=== PATIENT | male | born 1990 | race Caucasian/White ===

== ENCOUNTER → 2017-04-17 07:40 | Outpatient (CLI) | payer BC, SELFPAY ==
--- NOTE | 2017-04-17 07:44 | ECHOD_ITS ---
Reason For Study: PALPITATIONS Procedure This was a 2D Doppler, Color Flow transthoracic echocardiogram. Exam performed in department. Left Ventricle Normal size and thickness. The estimated ejection fraction is 65 %. No regional wall motion abnormalities noted. Right Ventricle Normal size and thickness. Normal systolic function. Atria Normal left atrium. Normal right atrium. Normal atrial septum. Mitral Valve The mitral valve is structurally normal. No prolapse or stenosis seen. Tricuspid Valve Normal tricuspid valve. Trivial tricuspid valve insufficiency. Right ventricular systolic pressure estimated to be 27 mmHg. Aortic Valve Trisinus/trileaflet aortic valve. Normal aortic valve. Pulmonic Valve Normal pulmonic valve. Great Vessels Normal aortic root. Normal arch. Normal inferior vena cava. Inferior vena cava collapse with sniff. Pericardium/Pleural No pericardial effusion. MMode/2D Measurements & Calculations LVIDd: 4.0 cm IVSd: 0.94 cm Ao root diam: 2.9 cm LVIDs: 2.6 cm LVPWd: 0.89 cm LA dimension: 2.3 cm RVDd: 3.2 cm FS: 35.2 % LAV(MOD-bp): 23.0 ml EDV(MOD-sp4): 70.6 ml EDV(MOD-sp2): 81.4 ml LAV(MOD-bp) Indexed: 11.6 ml/m2 ESV(MOD-sp4): 32.3 ml EF(MOD-sp2): 42.0 % LAV(MOD-sp2): 18.3 ml EF(MOD-sp4): 54.3 % LAV(MOD-sp4): 25.0 ml SV(MOD-sp4): 38.3 ml SV(MOD-sp2): 34.2 ml LA A4 area: 11.8 cm2 RA A4 area: 9.2 cm2 Doppler Measurements & Calculations MV E max lakia: 92.0 cm/sec Ao V2 max: 102.1 cm/sec LV V1 max: 106.5 cm/sec MV A max lakia: 63.5 cm/sec Ao max P.2 mmHg LV V1 max P.5 mmHg MV E/A: 1.4 PA V2 max: 100.9 cm/sec TR max lakia: 211.7 cm/sec TR max P.9 mmHg Interpretation Summary The estimated ejection fraction is 65 %. Trivial tricuspid valve insufficiency. Right ventricular systolic pressure estimated to be 27 mmHg. There is no comparison study available. Ordering Physician: Monroe Jennings Referring Physician: Monroe Jennings Performed By: Emily Baig, ALYCECS, RVT
== END ==
PROVIDERS: Family Provider Family Medicine; PCP Family Medicine; Visit Provider Family Medicine
DX: I45.10 Unspecified right bundle-branch block (principal); R00.2 Palpitations; R94.31 Abnormal electrocardiogram [ECG] [EKG]
CPT/HCPCS: 93306

== ENCOUNTER 2019-01-16 07:03 | Emergency (ER) | payer MEDICAID, SELFPAY ==
[2019-01-16 07:05] VITALS: BP 143/104; PULSE 105; RESP 16; TEMP 36.4; O2SAT 99; BMI 27.2
--- NOTE | 2019-01-16 07:27 | ED.DCSUM_ITS ---
History of Present Illness Chief Complaint: GI Bleed Informant: Patient Onset: Today Context: Gradual Onset Timing: Intermittent Narrative: Patient is a 28-year-old male with history of OCD presenting with hematemesis. Patient states he ate food that disagreed with his stomach, [employer] and an energy drink. Patient started throwing up. He states he sort of a total of 10 times. His last episode of vomiting was about an hour ago. He states as he continued to throw up he started seeing globs of blood in his vomit. Patient currently is complaining of a mild headache but denies any other complaints. He states this is happened to him in the past before. He denies any black or bloody stools. He denies any chest pain, shortness breath difficult to breathing. Patient states he has had an EGD in the past. He states that was 2 years ago they did not find anything. At one point he was on omeprazole but is not taking anything for acid reflux or his stomach at this time. Patient denies any alcohol, tobacco or illicit drug use. He states he has been compliant with his psychiatric medications. Past Medical History - Allergies and Home Meds Allergies/Adverse Reactions: Allergies No Known Allergies Allergy (Verified 01/16/19 07:08) Primary Care Physician: Monroe Jennings DO [Primary Care Provider] - Surgical History: - - Colonoscopy, EGD Smoking Status: Never smoker Alcohol: None Drugs: None Review of Systems All systems negative except as indicated Gastrointestinal: Reports: Nausea, Vomiting, - - Hematemesis Neurological: Reports: Headache Physical Exam Vital Signs/Narrative: Vital Signs Temp Pulse Resp BP Pulse Ox 01/16/19 07:05 97.6 F L 105 H 16 143/104 H 99 Inital Vital Signs reviewed: Yes General: Well nourished, Well developed, No Acute Distress Head: Normocephalic, Atraumatic Eyes: Perrl, EOMI. Negative for: Pale conjunctiva ENT: Moist mucous membranes, No rhinorrhea Neck: Supple, Nontender Cardiovascular: Regular rate, Regular rhythm, No murmurs Respiratory: No distress, CTA bilaterally, Chest nontender Abdomen: Soft, Nontender, Nondistended, Normal bowel sounds Back: Nontender, Normal Inspection Extremities: Nontender, No edema Skin: Normal color, No rash Neurological: Alert, Oriented x3, Cranial nerves II-XII grossly intact, Normal Strength, Normal Sensation Psychological: Normal affect, Normal Mood Diagnostic/Tx/Re-eval Laboratory Data 01/16/19 01/16/19 07:49 07:49 WBC 11.3 H RBC 5.48 Hgb 15.5 Hct 46.6 MCV 85.0 MCH 28.3 MCHC 33.3 RDW Std Deviation 37.8 RDW Coeff of Mikayla 12.1 Plt Count 199 MPV 11.0 Immature Gran % (Auto) 0.400 Neut % (Auto) 79.5 H Lymph % (Auto) 13.8 L Lewis % (Auto) 5.4 Eos % (Auto) 0.5 Baso % (Auto) 0.4 Absolute Neuts (auto) 9.0 H Absolute Lymphs (auto) 1.56 Nucleated RBC % 0 Sodium 137 Potassium 3.6 Chloride 102 Carbon Dioxide 27.0 Anion Gap 8 BUN 9 Creatinine 0.87 Estim Creat Clear Calc 120.11 Est GFR (MDRD) Af Amer 132 Est GFR (MDRD) Non-Af 109 BUN/Creatinine Ratio 10.3 Glucose 107 H Calcium 9.2 Total Bilirubin 0.40 AST 23 ALT 51 Alkaline Phosphatase 78 Total Protein 7.8 Albumin 4.0 Globulin 3.8 Albumin/Globulin Ratio 1.1 Lipase 59 L - Medical Decision Making Patient is evaluated for episodes of vomiting prior to arrival as well as blood in his vomit. He appears nontoxic and in no acute distress. Patient is likely tachycardic but is also quite anxious. It sounds like patient likely had Lili-Gibbons tears as he initially did not have blood in his vomit but then it started to develop after repeated episodes of vomiting. He does not have any chest pain or crepitus. I do not suspect Boerhaave syndrome. He is hemodynamically stable. H&H is normal. Patient has normal electrolytes, lipase and liver function. Patient is in the ER he becomes more anxious and now states he cannot move any of his extremities. Patient is unable to sound system installer my hands or raise his legs however when his arms are raised he is able to keep them up. In addition patient states he cannot move his feet however when I placed him in dorsi and plantar flexion he resist and moves his legs the opposite way. He has very good tone. He does not have any cogwheel rigidity on range of motion. I suspect this is psychogenic. Patient is given 0.5 mg of IV Ativan and the symptoms resolved. Patient is able to ambulate in the emergency room. He does not have any episodes of vomiting or hematemesis. Patient will be started on H2 lilliam as well as Zofran. He is counseled on a bland diet. I feel that he is stable for outpatient follow-up. Patient is encouraged to continue taking his psychiatric medications as prescribed. Patient is counseled on signs and symptoms requiring return to the emergency room. Patient verbalizes agreement and understand this plan. Patient discharged home in stable and improved condition. ED Disposition - Plan for ED Patient: Disposition: Home or Assisted Living Diagnosis: Hematemesis of unknown cause Instructions: GI BLEED, Upper (Stable) Prescriptions: Famotidine [Pepcid] 20 mg PO BID #28 tab Prescription Printed Ondansetron [Zofran Odt] 4 mg PO Q8H PRN PRN #12 tab PRN Reason: Nausea Prescription Printed Referrals: Monroe Jennings DO [Primary Care Provider] - Additional Instructions: You have been seen for vomiting with blood in it at home. You do not have signs of active bleeding right now. I think you are safe to go home. Please start taking the medications as prescribed. Drink plenty of fluids and eat a bland diet. Return to emergency room if you have worsening or further concerning symptoms.
[2019-01-16 07:43] VITALS: BP 152/113; PULSE 87; RESP 16; O2SAT 100
[2019-01-16] MEDS: 0.9% Normal Saline 1,000 ML 1000 ML IV (07:47)
[2019-01-16 07:57] LABS: Absolute Lymphocyte Count 1.56 X10^3/uL (0.83-4.51); Basophil# 0.05 X10^3/uL; Basophil% 0.4 % (0-1); Eosinophil# 0.06 X10^3/uL; Eosinophils% 0.5 % (0-5); Hematocrit 46.6 % (40-54); Hemoglobin 15.5 g/dL (13.0-16.5); Lymphocyte # 1.56 X10^3/ul (4.0); Lymphocyte % 13.8 % (19-41); Mean Corp Hgb Conc 33.3 g/dL (32-36); Mean Corpuscular Hgb 28.3 pg (27.0-32.0); Monocyte# 0.61 X10^3/uL; Monocyte% 5.4 % (0-10); NRBC Flagged by Analyzer 0 % (0-5); Neutrophil # 8.95 X10^3/uL (2.7-7.7); Neutrophil % 79.5 % (47-70); Platelet Count 199 K/mm3 (150-450); RBC Distribution Width CV 12.1 % (11.6-14.6); RBC Distribution Width SD 37.8 fl (35.1-43.9); Red Blood Count 5.48 M/mm3 (4.6-6.2); White Blood Count 11.3 K/mm3 (4.4-11.0)
--- NOTE | 2019-01-16 08:07 | ED.RN ---
pt denies nausea at this time.
[2019-01-16 08:14] LABS: ALB/GLOB Ratio 1.1 RATIO (0.9-2.4); AST(SGOT) 23 U/L (15-37); Alanine Aminotransfer ALT/SGPT 51 U/L (16-61); Alkaline Phosphatase 78 U/L (45-117); Anion Gap 8 (5-15); BUN 9 mg/dL (7-18); BUN/Creat Ratio 10.3 RATIO (10-20); Calcium,Total 9.2 mg/dL (8.5-10.1); Chloride 102 mmol/L (98-107); Creatinine, Serum 0.87 mg/dL (0.70-1.30); EST Glomerular Filtration Rate 109 mL/min (>60); Est Glom Filt Rate - Afr Amer 132 mL/min (>60); Estimated Creatinine Clearance 120.11 ml/min; Globulin 3.8 g/dL (2.2-4.2); Glucose 107 mg/dL (74-106); Lipase 59 U/L (73-393); Potassium 3.6 mmol/L (3.5-5.1); Protein, Total 7.8 g/dL (6.4-8.2); Sodium Level 137 mmol/L (136-145)
[2019-01-16] MEDS: LORazepam 2 MG/ML Syringe 0.5 MG IV (08:32)
[2019-01-16 09:08] VITALS: BP 140/103; PULSE 72; RESP 16; O2SAT 96
== END 2019-01-16 09:20 | disposition home or self-care (01) ==
PROVIDERS: Emergency Provider Emergency Medicine; Family Provider Family Medicine; PCP Family Medicine
DX: K92.0 Hematemesis (principal)
CPT/HCPCS: 80053; 83690; 85025; 96361; 96374; 99284; J7030; A4216

== ENCOUNTER → 2019-02-25 14:42 | Outpatient (CLI) | payer MEDICAID, SELFPAY ==
[2019-02-25 16:10] LABS: T4 Free Direct 1.02 ng/dL (0.76-1.46); Thyroid Stim Hormone (TSH) 1.89 uIU/mL (0.358-3.74)
[2019-03-01 16:07] LABS: Endomysial Antibody IgA Negative (Negative)
[2019-03-01 20:08] LABS: Immunoglobulin A 441 mg/dL (90-386); t-Transglutaminase IgA <2 U/mL (0-3)
== END ==
PROVIDERS: Family Provider Family Medicine; PCP Family Medicine; Visit Provider Family Medicine
DX: L30.9 Dermatitis, unspecified (principal); R53.83 Other fatigue
CPT/HCPCS: 36415; 82784; 83516; 84439; 84443; 86255

== ENCOUNTER 2019-03-02 18:19 | Emergency (ER) | payer MEDICAID, SELFPAY ==
[2019-03-02 18:21] VITALS: BP 148/92; PULSE 82; RESP 16; TEMP 37.4; O2SAT 99; BMI 26.6
--- NOTE | 2019-03-02 18:36 | ED.DCSUM_ITS ---
- ER Visit Summary Date of Service: 03/02/19 Chief Complaint: Suicidal ideation History of Present Illness: The patient is a 28 M presenting with suicidal ideation. Patient was sent by his psychiatrist today for evaluation. He states he has been having thoughts of killing himself for the past several weeks. He has had thoughts of jumping in traffic. He states he feels more and more broken every day. He has previous suicide attempt with overdosing in the past. No recent hospitalizations. Denies alcohol or drug use. Physical Examination: Vitals are stable. Patient is afebrile. Alert no acute distress. HEENT exam is unremarkable. Neck is supple. Lungs are clear and equal bilaterally. Heart is regular rate and rhythm. Abdomen is soft nontender nondistended. Extremities are unremarkable. Skin is warm and dry. No focal neurologic deficit. Depressed affect, suicidal ideation Remainder of exam is unremarkable. Emergency Department Course and Treatment: CBC, chemistries unremarkable. Tox positive for methamphetamine. Alcohol negative. Patient will be evaluated by social work in the ED. Disposition: Per social work Impression: Suicidal ideation This note was generated with [employer] dictation software. It may contain incorrect words, spelling, and punctuation that were not noted in review of the chart prior to signing ED Disposition - Plan for ED Patient: Disposition: Psychiatric Hospital or Unit Referrals: Monroe Jennings DO [Primary Care Provider] -
[2019-03-02 18:40] LABS: Absolute Lymphocyte Count 2.81 X10^3/uL (0.83-4.51); Absolute Neutrophil Count 5.1 X10^3/uL (2.0-7.7); Basophil# 0.08 X10^3/uL; Basophil% 0.9 % (0-1); Eosinophil# 0.35 X10^3/uL; Eosinophils% 3.8 % (0-5); Hematocrit 49.4 % (40-54); Hemoglobin 16.2 g/dL (13.0-16.5); Lymphocyte # 2.81 X10^3/ul (4.0); Lymphocyte % 30.7 % (19-41); Mean Corp Hgb Conc 32.8 g/dL (32-36); Mean Corpuscular Hgb 28.1 pg (27.0-32.0); Mean Corpuscular Volume 85.6 fL (80-94); Mean Platelet Vol. 11.4 fl (6.2-12.0); Monocyte# 0.73 X10^3/uL; NRBC Flagged by Analyzer 0 % (0-5); Neutrophil # 5.14 X10^3/uL (2.7-7.7); Neutrophil % 56.2 % (47-70); Platelet Count 231 K/mm3 (150-450); RBC Distribution Width CV 12.4 % (11.6-14.6); RBC Distribution Width SD 38.2 fl (35.1-43.9); Red Blood Count 5.77 M/mm3 (4.6-6.2); White Blood Count 9.2 K/mm3 (4.4-11.0)
[2019-03-02 19:01] LABS: Anion Gap 5 (5-15); BUN 9 mg/dL (7-18); BUN/Creat Ratio 8.7 RATIO (10-20); Calcium,Total 8.9 mg/dL (8.5-10.1); Chloride 109 mmol/L (98-107); Creatinine, Serum 1.04 mg/dL (0.70-1.30); EST Glomerular Filtration Rate 89 mL/min (>60); Est Glom Filt Rate - Afr Amer 107 mL/min (>60); Estimated Creatinine Clearance 103.86 ml/min; Glucose 105 mg/dL (74-106); Potassium 4.2 mmol/L (3.5-5.1); Sodium Level 141 mmol/L (136-145)
--- NOTE | 2019-03-02 19:29 | CM.ED ---
SOCIAL WORK INFORMANT: DR. REY REASON FOR REFERRAL: SUICIDAL IDEATION CHIEF COMPLIANT: PATIENT REPORTS INCREASING DEPRESSION. PATIENT STATES SUICIDAL THOUGHTS. PATIENT VOICED FEELINGS OF HOPELESSNESS AND SELF HATE. MARITAL/SOCIAL HISTORY: SINGLE LIVING SITUATION: PATIENT REPORTS LIVES IN THE BASEMENT OF HIS FATHER'S HOME. SUPPORT/RESOURCES: FAMILY, [facility] EDUCATION/EMPLOYMENT HISTORY: PATIENT GRADUATED HIGH SCHOOL. PATIENT STATES WAS WORKING UP UNTIL EARLY DECEMBER WHEN HE RESIGNED D/T MENTAL HEALTH. MENTAL HEALTH TREATMENT/HISTORY: PATIENT REPORTS HAS BEEN DIAGNOSED WITH DEPRESSION, ANXIETY, BIPOLAR DISORDER. PATIENT STATES WAS RECENTLY INFORMED MAY HAVE UNDIAGNOSED AUTISM. PATIENT STATES FOLLOWS WITH [facility] AND SAW DR. PAULINO WHO WANTED HIM EVALUATED. PATIENT REPORTS IS COMPLIANT WITH MEDICATIONS. ABUSE ISSUES: PATIENT REPORTS HISTORY OF EMOTIONAL ABUSE WHILE IN MIDDLE SCHOOL BY [employer]. SUBSTANCE ABUSE HX: PATIENT DENIES ANY HISTORY OF SUBSTANCE ABUSE. MENTAL STATUS EXAM: ORIENTATION: PATIENT ALERT AND ORIENTED X4. MEMORY: GOOD APPEARANCE/GENERAL BEHAVIOR: CLEAN/APPROPRIATE, CALM MOOD/AFFECT: DEPRESSED COMMUNICATION PATTERN: RESPONDS TO QUESTIONS THOUGHT PROCESS: APPROPRIATE JUDGEMENT: POOR RISK TO SELF/OTHERS: SUICIDAL: PATIENT WITH SUICIDAL IDEATION AND PLAN OF JUMPING INTO TRAFFIC. PATIENT REPORTS PREVIOUS HX OF ATTEMPTS BY OVERDOSE. HOMICIDAL: PATIENT DENIES ANY HOMICIDAL IDEATION. ASSESSMENT: MET WITH PATIENT AND MOTHER IN ROOM. INTRODUCED ROLE AND REASON FOR REFERRAL. PATIENT GAVE PERMISSION FOR THIS WORKER TO SPEAK OPENLY WITH MOTHER PRESENT. PATIENT REPORTS FEELINGS OF HOPELESSNESS AND SELF HATE. PATIENT STATES CANCELLED COUNSELING APPOINTMENT TODAY BECAUSE DIDN'T HAVE THE ENERGY TO GO OUT OF THE HOUSE FOR TWO APPOINTMENTS TODAY. PATIENT STATES HAS BEEN INCREASINGLY DEPRESSED AND HAVING SUICIDAL IDEATIONS. DISCUSSED TREATMENT. PATIENT REPORTS HAS BEEN HOSPITALIZED IN THE PAST D/T SUICIDAL IDEATION AND ATTEMPT. DISCUSSED INTENSIVE OUTPATIENT TREATMENT AFTER HOSPITALIZATION. EDUCATION PROVIDED ON [facility]. PATIENT REPORTS WOULD BE OPEN TO AN INTAKE APPOINTMENT. CASE DISCUSSED WITH DR. REY. PLAN FOR INPATIENT HOSPITALIZATION FOR STABILIZATION. PLAN: REFERRAL FOR INPATIENT PSYCH TREATMENT Jaxon SAPP MSW, GEOLOGICAL ENGINEERING TEACHER.
[2019-03-02 19:30] LABS: Amphetamine Urine VISTA NEGATIVE (<1000 ng/mL); Barbiturate Urine VISTA NEGATIVE (< 200 ng/mL); Benzodiazepine Urine VISTA NEGATIVE (< 200 ng/mL); Cocaine Urine VISTA NEGATIVE (< 300 ng/mL); Ecstacy Urine VISTA POSITIVE (< 500 ng/mL); Methadone Urine VISTA NEGATIVE (< 300 ng/mL); PCP Urine VISTA NEGATIVE (< 25 ng/mL); THC Urine VISTA NEGATIVE (< 50 ng/mL); Vista UDS pH Range 6
--- NOTE | 2019-03-02 20:00 | CM.ED ---
SOCIAL WORK REFERRAL FAXED AND CALLED TO [facility]. AWAITING ACCEPTANCE AT THIS TIME. Jaxon SAPP, BUSINESS APPLICATIONS DEVELOPER, CHANNEL OPENER.
--- NOTE | 2019-03-02 20:22 | CM.ED ---
SOCIAL WORK CALL FROM [facility], PATIENT ACCEPTED BY DR. HERMOSILLO TO THE [facility] UNIT. NURSE TO CALL REPORT TO . STAFF AND PATIENT UPDATED. PATIENT PROVIDED WITH [facility] FOR BEHAVIORAL HEALTH SERVICES FOR FOLLOW UP AFTER HOSPITALIZATION. Jaxon SAPP, MANAGER OF CARE, ASSEMBLER HANDBAGS.
== END 2019-03-02 21:31 ==
LOC: ED 18:46
PROVIDERS: Emergency Provider Emergency Medicine; Family Provider Family Medicine; PCP Family Medicine
DX: R45.851 Suicidal ideations (principal); Z91.5 Personal history of self-harm
CPT/HCPCS: 36415; 80048; 80307; 80320; 85025; 99284; G0480

== ENCOUNTER 2019-03-31 09:00 | Outpatient (RCR) | payer MEDICAID, SELFPAY ==
--- NOTE | 2019-03-31 09:04 | BH.SGPN.GN ---
Behaviors/Verbalizations/Mental Status: [Eye contact is good. Motor activity is appropriate. Appearance is casual, grooming appropriate. Speech is Appropriate rate and tone. Mood is anxious, euthymic. Affect is congruent. Thoughts are linear and logical. No evidence of psychosis. Reviewed daily check in sheet and pt denies any active SI, plan, or intent as of this date. ] Client Response/Progress/Benefit: []Pt responded well to session, engaged throughout and open to processing with the group. Pt indicated current emotion as ?relieved? and discussed that this is due to beginning to accept his recent diagnosis of Autism. Shared feeling uncomfortable in group setting as this is his first day and he is unsure as to whether the program will be a good fit for him. Receptive of supportive feedback provided by group and able to identify a small mental health win which included reaching out to supports for more information on his diagnosis and to help challenge thoughts of ?I?m broken?. Appeared to benefit from the support of the group environment. Pt progress limited due to this being pt first day in IOP tx however he did well to openly engage in group discussion. recommended continued IOP tx to prevent decompensation, increase identification and application of healthy coping skills, and reduce mental health sx severity. Narrative Note: []
--- NOTE | 2019-03-31 12:58 | BH.PSY.EVA_ITS ---
Psychiatric Evaluation - Initial Evaluation Initial Evaluation: Chief Complaint: [] I am getting better at not hating myself. History of Present Illness: [] Patient is a 28-year-old single male who currently lives in a basement apartment of his father's house and who last worked in December 2018 is seen on admission to the [facility] behavioral health intensive outpatient program. The patient was recently admitted to [facility] from March 02 to March 08, 2019 due to depression and suicidal ideation with a plan to jump into traffic he has a history of bipolar disorder, generalized anxiety disorder and a recent diagnosis of autism spectrum disorder. The patient was referred by his outpatient therapist because she did not feel he was maintaining his improvement after his discharge from the hospital. The patient quit his job in December because he had been depressed and was unable to do his job effectively due to his mental health symptoms at the time. He felt that he could never work again at that time but the patient says he is beginning to improve since he has made some friends online and in person who also have autism spectrum disorder. Patient denies suicidal ideation now and he in fact says that the suicidal ideation I received in the records from his inpatient occurred in December not in February. He feels he was admitted erroneously in February. He is feeling better now however because he has connected online with some autistic people and also has listened to some blocks by autism spectrum disorder patients. He endorses hopelessness in the past but feels hopeful now. He endorses worthlessness but feels that this is slowly improving. He has been isolating himself but again feels that now that he knows he is autistic he is reaching out more to people. He understands the reason he has had social problems in the past and he and he feels this is part of his low self-esteem issues. He has a history of always hating himself but he feels that he is learning to overcome that now. He had some anhedonia which she feels is improving. His appetite was decreased when he was admitted to the hospital and his sleep was increased. He has a history of low energy and decreased concentration prior to his admission. He has occasional guilt feelings. He denies any suicidal ideation now but he says yesterday he did had some fleeting suicidal ideation. He denies any plan now. No homicidal ideation. No hallucinations or delusions. He denies any symptoms of kyra. He is a worrier by nature and he had panic attacks in the past but only when he was at jobs that he was not doing well in. He denies any history of OCD, eating disorder. He did says he feels he was traumatized in middle school and high school by his peers and his principal. He was picked on at school a lot and had a lot of suspensions in school for acting out. He was never violent. He has flashbacks, avoidance, and nightmares of the above traumas. For primary support he has his family in his counseling center and his new friends online that have autism spectrum disorder. He denies any history of self-harm except he said well he does occasionally punch or scratch himself. The last time he punched or scratched himself was 3 to 4 weeks ago. He has never required stitches and has no scars from any of his self-harm which she has done off and on since middle school. Current Psychiatric Medications: [] Butyrin XL 300 mg, 1 p.o. every morning; Luvox was DC'd a few weeks ago due to sexual side effects. Past Psychiatric History: [] Patient has a history of 4 prior psychiatric admissions. The first psych admit was at age 12 at [facility] for major depressive disorder and picking up a knife. His second 1 was in [address] [facility] and the third was in 2014 at [facility]. Most recent admission was at [facility] as noted above in present illness in February 2019. He admits to a previous suicide attempts x2. The first suicide attempt was in 2010 where he put a rope around his neck and fell asleep hoping it would strangle him while he was sleeping. His second suicide attempt was in 2014 which she attempted by overdosing on pain pills. His current psychiatrist isJeri Grier and his counselor is Monroe Muller. He has had counseling also in the past which she has found helpful. He is first psychiatric meds he took in seventh grade and he has been on and off meds since. He feels he is on psych meds about 50% of the time and off them the rest of the time. His past psychiatric meds include Zoloft in high school, Seroquel, Wellbutrin, Celexa, Lamictal Substance Use History: [] No rehab ever. No marijuana use. He used marijuana about twice a week in the past for few months when he lived in [place] 6 years ago. He used speed once in middle school and never again. He has very rare alcohol use with he describes as 1-2 drinks per month when out with friends. He is a non-smoker. He denies any other drug use. Allergies: [] No known allergies Medications: [] Wellbutrin XL 300 mg p.o. every morning; vitamin D 50,000 unit international units p.o. once a week Past Medical History: [] He has a history of vomiting up blood after eating certain foods. He says that he vomits every few days to every 2 weeks. These foods include sodas, cheeses, chips and dip and sauerkraut and others. He has history of colonoscopy and endoscopy x1 which were normal. He has normal sexual function but describes himself as a sexual he says he is not interested in either gender. He did give a history of 2 homosexual sexual role relationships however. Family Psychiatric History: [] His mother is 64 years old and his dad is 71 years old. There is a family history of depression in a maternal aunt and the patient's brother. His maternal grandparents are both alcoholic. He has a maternal uncle who completed so suicide. Personal/Social History: [] Was born and raised in [facility]. His childhood he describes as okay until middle school. His parents when the patient was 1 years old and he stayed with his mother but saw his father regularly. His father is verbally abusive to them now but as a child the father was not abusive. The patient is youngest in the family and has 4 older brothers and 1 older sister. He was bullied in middle school and high school and he feels this traumatized him. 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 He is close to 1 brother who is 8 years older than him and this brother is 1 of his best sources of support. He graduated high school but has no co llege. 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 His longest job was his IT job for 2 years which he left due to stress and the fact that he felt he needed a vacation. He planned moved to [place] last year but then this these plans fell through. He describes it vague history of a serious relationship with a male that was a polyamorous relationship but it was only for a few months and it is all rather vague and nondescript. He also says he had a male boyfriend in 2018 for several months. But he describes himself currently as a sexual but he says he does enjoy pleasuring himself. 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 Legal History: [] Negative Review of Systems: [] Negative except as noted in present illness Vital Signs: [] Mental Status Examination: [] Patient is a 28-year-old male who appears younger than stated age and is casually dressed and groomed with good hygiene. He is cooperative during the interview and has no psychomotor agitation or retardation. His eye contact was poor initially in the interview and he would only look to the side and down when speaking. As the interview progresses eye contact improved and was actually okay at times. Speech was normal rate and rhythm and fluent with no pressure. Mood is depressed. Affect is constricted and consistent with depression. Thought processes goal-directed and organized. Thought content: No evidence of suicidal or homicidal ideation now. No evidence of hallucinations or delusions. Reality testing is intact. Intelligence is average. Judgment is intact. Insight: Was poor but some present now. Impulsivity: Low to moderate. 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 The patient would benefit probably from the IOP program as the structure, support, education, group and individual therapy would hopefully prevent worsening of his symptoms which might require hospitalization. The risk, options, and possible side effects of the medication were discussed with the patient. He understands and accepts them. We discussed especially the risk of vomiting when taking Wellbutrin which could be associated with seizures. Especially at high doses of 450 mg or greater. The patient agrees not to take any extra doses of Wellbutrin if he thinks he vomits 1. He also agrees to tell his other providers about his vomiting because he says he is not told them. He felt safe during the interview and if at any time he does not feel safe he will tell us at the IOP program or go to the emergency room. His medications were not changed at this appointment.
--- NOTE | 2019-03-31 13:14 | BH.DR.ITP ---
Initial Treatment Plan - Patient Information Visit Information: ADMISSION DATE: EXPECTED LOS: 4-6 weeks - Problems/Symptoms Problem #1:: Depression Symptom:: sadness, worthlessness, hopelessness, history of suicidal ideation Problem #2:: Anxiety Symptom:: Worry, rumination, social anxiety
--- NOTE | 2019-03-31 15:11 | BH.MDN_ITS ---
Multi-Disciplinary Note - Note 30-min Individual Time Started:: 10:48 Date: 03/31/19 Purpose of session/treatment goals addressed:: Purpose of this session was to assess current symptoms and stressors, as well as address pt concerns regarding group treatment and appropriateness of fit for the IOP tx program. Eye Contact:: Good Motor Activity:: Appropriate Appearance:: Casual Speech:: Appropriate Mood:: Anxious Affect:: Full Thoughts:: Linear, Logical, No evidence of hallucinations/delusions noted Staff Interventions:: Therapist asked open ended and furthering questions to gather additional information regarding current symptoms, stressors, and co ncerns regarding IOP treatment. Discussed pro's and con's of continuing with group treatment despite anxieties about doing so. Gave supportive feedback and empathic responses to validate emotions. Provided resources for support groups and local agenicies providing services for Autism Spectrum. Client Response:: Pt was receptive of session and actively engaged throughout. H e openly discussed current symptoms and stressors, as well as concerns regarding group treatment. Pt indicated it was recently suggested to him by another therapist that he may fall on the Autism Spectrum. Reports doing more research on this diagnosis and indicated connecting with several of the symptoms associated. Pt provided insight that this may have contributed to past difficulties in communicating with others in social settings as well as ongoing struggles regarding rigid thinking and rumination. He noted finding a blog done by someone who was diagnosed with Autism at the age of 28 to be a helpful resource. Pt noted that knowing he is not alone in having the diagnosis has help him with challenging thoughts of I'm broken or I have some sort of malfunction. Shared that he would like to focus his treatment on specifically addressing adjusting to the diagnosis and learning skills for coping with associated symptoms. Indicated beliefs that he would benefit from seeking treatment from someone specialized in working with the Autism population. Went on to indicate feeling the group treatment environment would not be condusive to meeting these needs. Therapist worked with pt to identify potential benefit of group counseling and discussed that he would be able to work on challenging distorted thought patterns and improving prosocial skills; however pt indicated feeling he would most benefit from seeking individualize therapy and attending support groups specifically geared towards adults with Autism Spectrum. Receptive of resources provided on local support groups and agencies specializing in Autism Specrum disorder. Willing to [facility] as he is already established with Monroe Arriola and Dr. Astreka. Risks/Concerns:: No risks or concerns noted. Pt denies any suicidal ideation, plan, or intent as of this date 03/31/19. Progress Toward Goals/Plan:: Pt first day in IOP tx and therefore unable to make much progress. Noted feeling IOP tx is no longer an appropriate fit as he feels his mental health related sx were more acute and now that he has recieved clarity on having a diagnosis of autism spectrum disorder he is more hopeful in his ability to better manage related symptoms. Educated on the benefits of group therapy on maintaining gains and preventing decompensation; however, pt reports a desire to pursue outpatient tx on an individual basis as well as begin attending an Adults Autism Support group. Receptive of resources provided. Willing to follow-up with outpatient providers as pt has elected to discharge from IOP tx on this date. Time Stopped:: 11:11
--- NOTE | 2019-03-31 15:33 | BH.DS_ITS ---
Discharge Summary - Demographics Date of Admission:: 03/31/19 Discharge Date: 03/31/19 Presenting Problems at Admission:: Pt is a 28 year old male with hx of Bipolar and GRETA. Pt reports recent dx of Autism Spectrum Disorder. Recently admitted to [facility] for Psychiatry from 03/02/19-03/05/19 for suicidal ideations with plan to jump infront of traffic. Referred to IOP by his outpatient therapist due to limited progress in traditional outpatient. Notes erratic emotions and fleeting suicidal ideations. Endorses increased sleep, decreased appetite, low energy, low motivation, isolative behaivors, anhedonia, hopelessness, worthlessness, and poor self-esteem. I can't get over my self-hate ... I can't find anything good about me. Denies active suicidal ideations, plan, or intent. Previous suicide attempt 2 years ago via OD. Fleeting SI. Quit his job in 12/2017 due to mental health symptoms. Denies HI. Denies substance abuse. Auditory hallucination which occur very rarely. Family hx of depression. Maternal uncle complete suicide. Not functioning at baseline. Due to recent hospitalization, fleeting SI, MH symptoms interfering with functioning, and limited benefit from traditional outpaiteint recommened IOP level of care. Discharge Diagnoses:: MDD, reccurent, severe F33.2 Reason for Discharge:: MDD, recurrent, severe f33.2 - Treatment Progress During Treatment & Response: No progress noted. Pt only attened one IOP and completed evaluation with psychiatrist. Pt verbalized during group and to psychiatrist that IOP would not be beneficial to him. Refer to psych note for more information. Pt reported that since pre-admission screening he has reached out to support for Autism Spectrum through online resources and feels less depressed. Also told therapist that he did not want to listen to other people's problems refering group work. Issues Still to be Addressed:: Depression, poor self-esteem, isolative behaviors, fleeting SI, Symptoms impacting functioing. Discharge Recommendations/Instructions:: Encouraged and recommended to continue with IOP however pt declined. He was given numerous resources for Autsim Spectrum support groups and treatment in the area as he verbalized focusing on this was beneficial however told therapist I won't use these. Encouraged to follow up with his therapist Monroe Arriola and psychiatrist Dr. Martin at [facility]. Message left with Monroe Arriola regarding pt's discharge. Discharge Handout: Complete Discharge Handout with client on aftercare options and continuity of care.
== END 2019-03-31 15:33 | disposition home or self-care (01) ==
LOC: BHIOP 09:00
PROVIDERS: Family Provider Family Medicine; PCP Family Medicine; Referring Provider Psychiatry & Neurology Psychiatry; Visit Provider Psychiatry & Neurology Psychiatry
DX: F33.2 Major depressive disorder, recurrent severe without psychotic features (principal); F41.1 Generalized anxiety disorder; F84.0 Autistic disorder; Z79.899 Other long term (current) drug therapy
CPT/HCPCS: H0035; H2012; 90832

== ENCOUNTER 2019-04-04 00:46 | Emergency (ER) | payer MEDICAID, SELFPAY ==
[2019-04-04 00:48] VITALS: BP 149/98; PULSE 99; RESP 15; TEMP 36.4; O2SAT 98; BMI 26.6
--- NOTE | 2019-04-04 01:15 | ED.VIS.GI ---
History of Present Illness Chief Complaint: GI Bleed Detail of Chief Complaint: vomiting Informant: Patient - Abdominal Pain/Flank Pain Onset: Days 05-18 Context: Onset with activity - after eating or drinking fluids Timing: Intermittent Maximum Severity: Severe Worsened by: Food Relieved by: Nothing - Nausea/Vomiting/Emesis GI Symptom: Nausea, Vomiting Onset: Days - Quality: Nonbilious, Blood streaks. Negative for: Coffee ground - Diarrhea/Melena/Hematochezia GI Symptom: Negative for: Diarrhea, Melena, Hematochezia Associated Symptoms: Negative for: Dysuria, Frequency, Hematuria, Urgency Narrative: Patient states he has had this happen before, episodic vomiting. This started several days ago, started after eating and within 5 or 10 minutes he is retching 8 or 9 times in a row, with blood streaks in only the last couple times. Then he has no issues until the next time he eats. Today/tonight, it became worse because he was not able to keep any fluids down, hence him presenting to the emergency department, also due to him seeing what looked like dried blood that he vomited. When asking him more details about this, it sounds like he was vomiting up some blood clots that were relatively small. He had a nosebleed 3 or 4 days ago but it was minor and none since. Nothing else in his oropharynx that is bleeding. - Past Medical History (1) PUD (peptic ulcer disease) Status: Chronic Past Medical History - Allergies and Home Meds Allergies/Adverse Reactions: Allergies No Known Allergies Allergy (Verified 04/04/19 00:47) Primary Care Physician: Monroe Jennings DO [Primary Care Provider] - Surgical History: - - Colonoscopy, EGD Smoking Status: Never smoker Review of Systems General: Reports: Malaise. Denies: Chills, Fever, Sweats Eyes: Denies: Visual changes - bilaterally, Diplopia ENT: Denies: Bilateral ear pain, Rhinorrhea, Sore throat Cardiovascular: Reports: Chest pain. Denies: Palpitations Respiratory: Denies: Dyspnea, Cough, Dyspnea on exertion Gastrointestinal: Reports: Nausea, Vomiting, - - blood in vomit. Denies: Abdominal pain, Diarrhea, Melena, Hematochezia Genitourinary: Denies: Dysuria, Hematuria, Frequency Musculoskeletal: Denies: Back pain, Extremity Pain Skin: Denies: Rash, Wounds Neurological: Denies: Headache, Weakness, Numbness Physical Exam Vital Signs/Narrative: Vital Signs Temp Pulse Resp BP Pulse Ox 04/04/19 00:48 97.6 F L 99 15 149/98 H 98 Inital Vital Signs reviewed: Yes General: Well nourished, Well developed, No Acute Distress - well-appearing Head: Normocephalic, Atraumatic Eyes: Perrl, EOMI ENT: Moist mucous membranes, No rhinorrhea, - - Posterior oropharynx clear. No trismus. No mass or erythema or friable tissue. Neck: Supple, Nontender Cardiovascular: Regular rate, Regular rhythm, No murmurs. Negative for: Tachycardia Respiratory: No distress, CTA bilaterally, Chest nontender Abdomen: Soft, Nontender, Nondistended, Normal bowel sounds Back: Nontender, Normal Inspection Extremities: Nontender, No edema. Negative for: Calf Tenderness Skin: Normal color, No rash, No Trauma Neurological: Alert, Oriented x3, Cranial nerves II-XII grossly intact, Normal Strength, Normal Sensation, Normal Gait Psychological: Normal affect, Normal Mood Diagnostic/Tx/Re-eval Laboratory Results 04/04/19 04/04/19 01:28 01:28 WBC 7.5 RBC 5.36 Hgb 14.9 Hct 45.8 MCV 85.4 MCH 27.8 MCHC 32.5 RDW Std Deviation 38.3 RDW Coeff of Mikayla 12.3 Plt Count 189 MPV 11.5 Immature Gran % (Auto) 0.400 Neut % (Auto) 65.1 Lymph % (Auto) 23.7 [place] % (Auto) 7.4 Eos % (Auto) 2.9 Baso % (Auto) 0.5 Absolute Neuts (auto) 4.9 Absolute Lymphs (auto) 1.77 Nucleated RBC % 0 Sodium 139 Potassium 4.2 Chloride 106 Carbon Dioxide 30.0 Anion Gap 3 L BUN 9 Creatinine 0.93 Estim Creat Clear Calc 116.14 Est GFR (MDRD) Af Amer 123 Est GFR (MDRD) Non-Af 101 BUN/Creatinine Ratio 9.7 L Glucose 91 Calcium 9.1 - Medical Decision Making Labs are unremarkable and reassuring, suggesting there is no active upper GI bleeding. After IV fluids, Phenergan, GI cocktail, he is feeling much better. He is tolerating oral fluids without difficulty and feeling better enough to go home. Advised to continue the PPI that he got, follow-up with his GI physician, with whom he already has an appointment, and we discussed reasons to return. I suspect the bleeding was either a Lili-Gibbons tear, or certainly he could have recurrence of his peptic ulcer disease, for which he needs to follow-up. ED Disposition - Plan for ED Patient: Disposition: Home or Assisted Living Diagnosis: Acute gastritis with bleeding, Lili-Gibbons tear Instructions: GASTRITIS vs. ULCER, Lili-Gibbons Tear Prescriptions: proMETHazine tablet [Phenergan] 25 mg PO Q6H PRN PRN #20 tab PRN Reason: Nausea Transmission Status: Pending to [facility]/pharmacy #[id number] Referrals: Monroe Jennings, [Primary Care Provider] - Keep Miguel Angel appointment (And/or your manager community relations) Additional Instructions: Continue taking your omeprazole daily for at least 2 weeks.
[2019-04-04] MEDS: proMETHazine 25 MG/ML Syringe 12.5 MG IV (01:27)
[2019-04-04] MEDS: 0.9% Normal Saline 1,000 ML 999 ML IV (01:27)
[2019-04-04] MEDS: Mag Hydrox/Al Hydrox/Simeth 30 ML UDC PO (01:29)
[2019-04-04 01:39] LABS: Absolute Lymphocyte Count 1.77 X10^3/uL (0.83-4.51); Absolute Neutrophil Count 4.9 X10^3/uL (2.0-7.7); Basophil# 0.04 X10^3/uL; Basophil% 0.5 % (0-1); Eosinophil# 0.22 X10^3/uL; Eosinophils% 2.9 % (0-5); Hematocrit 45.8 % (40-54); Hemoglobin 14.9 g/dL (13.0-16.5); Lymphocyte # 1.77 X10^3/ul (4.0); Lymphocyte % 23.7 % (19-41); Mean Corp Hgb Conc 32.5 g/dL (32-36); Mean Corpuscular Hgb 27.8 pg (27.0-32.0); Mean Corpuscular Volume 85.4 fL (80-94); Mean Platelet Vol. 11.5 fl (6.2-12.0); Monocyte# 0.55 X10^3/uL; Monocyte% 7.4 % (0-10); NRBC Flagged by Analyzer 0 % (0-5); Neutrophil # 4.87 X10^3/uL (2.7-7.7); Neutrophil % 65.1 % (47-70); Platelet Count 189 K/mm3 (150-450); RBC Distribution Width CV 12.3 % (11.6-14.6); RBC Distribution Width SD 38.3 fl (35.1-43.9); Red Blood Count 5.36 M/mm3 (4.6-6.2); White Blood Count 7.5 K/mm3 (4.4-11.0)
[2019-04-04 01:50] LABS: Anion Gap 3 (5-15); BUN 9 mg/dL (7-18); BUN/Creat Ratio 9.7 RATIO (10-20); Calcium,Total 9.1 mg/dL (8.5-10.1); Chloride 106 mmol/L (98-107); Creatinine, Serum 0.93 mg/dL (0.70-1.30); EST Glomerular Filtration Rate 101 mL/min (>60); Est Glom Filt Rate - Afr Amer 123 mL/min (>60); Estimated Creatinine Clearance 116.14 ml/min; Glucose 91 mg/dL (74-106); Potassium 4.2 mmol/L (3.5-5.1); Sodium Level 139 mmol/L (136-145)
[2019-04-04 03:08] VITALS: PULSE 88; RESP 16; O2SAT 97
== END 2019-04-04 03:08 | disposition home or self-care (01) ==
PROVIDERS: Emergency Provider Emergency Medicine; PCP Family Medicine
DX: K29.01 Acute gastritis with bleeding (principal); K22.6 Gastro-esophageal laceration-hemorrhage syndrome
CPT/HCPCS: 80048; 85025; 96361; 96374; 99283; J7030; A4216

== ENCOUNTER → 2019-04-07 12:06 | Outpatient (CLI) | payer MEDICAID, SELFPAY ==
[2019-04-04 00:48] VITALS: BMI 26.6
[2019-04-09 17:10] LABS: H.Pylori Breath Test Negative (Negative)
== END ==
PROVIDERS: PCP Family Medicine; Visit Provider Family Medicine
DX: K27.9 Peptic ulcer, site unspecified, unspecified as acute or chronic, without hemorrhage or perforation (principal)
CPT/HCPCS: 83013

== ENCOUNTER → 2019-10-19 11:55 | Outpatient (CLI) | payer MEDICAID, SELFPAY ==
[2019-10-20 06:40] LABS: SARS-COV-2 TOTAL ABS Nonreactive (Nonreactive)
== END ==
PROVIDERS: PCP Family Medicine; Visit Provider Family Medicine
DX: R05 Cough (principal)
CPT/HCPCS: 86769; G2023

== ENCOUNTER → 2019-10-26 16:25 | Outpatient (CLI) | payer MEDICAID, SELFPAY ==
--- NOTE | 2019-10-26 16:32 | RAD_ITS ---
STUDY: X-RAY CHEST REASON FOR EXAM: Male, 29 years old. cough TECHNIQUE: PA and lateral views of the chest. COMPARISON: None. FINDINGS: There is a hazy infiltrate of the right middle lobe. There is a small radiopacity projecting over the anterior left fourth rib. I''m not sure if this is actually within the rib or represents a calcified granuloma. There is no demonstrated pleural abnormality. Normal size heart. Normal mediastinum and eladio. Normal visualized pulmonary arteries. Normal visualized aortic arch and descending thoracic aorta. Normal visualized thoracic spine. Normal visualized clavicles, and shoulders. There is no demonstrated abnormality of the visualized soft tissue structures of the upper abdomen. RAD/Chest PA and Lateral IMPRESSION: Hazy infiltrate in the medial right middle lobe. Small sclerotic focus of the left upper lung field projecting over the anterior fourth rib. I am not sure if this is actually within the rib or represents a calcified granuloma. Electronically Signed: Nikolai Walters MD at 21:44 EDT , Service support ,
== END ==
PROVIDERS: PCP Family Medicine; Referring Provider Family Medicine; Visit Provider Family Medicine
DX: R05 Cough (principal)
CPT/HCPCS: 71046

== ENCOUNTER 2019-11-05 15:43 | Emergency (ER) | payer MEDICAID, SELFPAY ==
[2019-11-05 15:43] VITALS: BP 154/89; PULSE 129; RESP 22; TEMP 36.6; O2SAT 95; BMI 25.1
--- NOTE | 2019-11-05 16:00 | EKG12_ITS ---
Test Reason : SOB Blood Pressure : / mmHG Vent. Rate : 117 BPM Atrial Rate : 117 BPM P-R Int : 100 ms QRS Dur : 086 ms QT Int : 306 ms P-R-T Axes : 033 117 049 degrees QTc Int : 426 ms Poor data quality, interpretation may be adversely affected Sinus tachycardia with short NM Right axis deviation Abnormal ECG Confirmed by JOSHUA RIVERA, VANI ([id number]), movie editor DEBORA PHILLIPS ([id number]) on 11/09/2019 8:59:05 AM Referred By: NINA Confirmed By:LIANG LEWIS MD
--- NOTE | 2019-11-05 16:01 | CT_ITS ---
STUDY: CTA CHEST REASON FOR EXAM: Male, 29 years old. DYSPNEA,TACHYCARDIA. Dry cough since August. RADIATION DOSAGE (If Supplied By Facility): CTDIvol = ( 9.07 ) mGy, DLP = ( 372.83 ) mGycm TECHNIQUE: The examination was performed with the intravenous administration of Isovue 370 100ml. Post-processing of the angiographic images was performed, with multiplanar reformation and 3D reconstruction. Individualized dose optimization techniques were used for this CT. COMPARISON: None. FINDINGS: There is a calcified granuloma in the superior segment of the left lower lobe. There are no pulmonary infiltrates or pleural effusions. The central airways are patent. There is no pneumothorax. There is no evidence of pulmonary embolus. There is no evidence of thoracic aortic aneurysm or dissection. There are calcified left hilar lymph nodes, consistent with prior granulomatous disease. There is no thoracic lymphadenopathy. The heart and pericardium are within normal limits. Images through the upper abdomen demonstrate splenic granulomata. There are no destructive osseous lesions. CT/CTA Chest W/WO Contrast IMPRESSION: No evidence of pulmonary embolus or other acute thoracic disease. Evidence of prior granulomatous disease. Electronically Signed: Ryne Flynn, at 17:19 EDT Tel , Service support ,
[2019-11-05 16:49] LABS: Absolute Lymphocyte Count 2.19 X10^3/uL (0.83-4.51); Absolute Neutrophil Count 4.3 X10^3/uL (2.0-7.7); Basophil# 0.03 X10^3/uL; Basophil% 0.4 % (0-1); Eosinophil# 0.21 X10^3/uL; Eosinophils% 2.8 % (0-5); Hematocrit 49.5 % (40-54); Hemoglobin 16.1 g/dL (13.0-16.5); Lymphocyte # 2.19 X10^3/ul (4.0); Lymphocyte % 29.7 % (19-41); Mean Corp Hgb Conc 32.5 g/dL (32-36); Mean Corpuscular Hgb 27.8 pg (27.0-32.0); Mean Corpuscular Volume 85.3 fL (80-94); Mean Platelet Vol. 11.5 fl (6.2-12.0); Monocyte# 0.65 X10^3/uL; Monocyte% 8.8 % (0-10); NRBC Flagged by Analyzer 0 % (0-5); Neutrophil # 4.26 X10^3/uL (2.7-7.7); Neutrophil % 57.8 % (47-70); Platelet Count 223 K/mm3 (150-450); RBC Distribution Width CV 12.8 % (11.6-14.6); RBC Distribution Width SD 39.5 fl (35.1-43.9); White Blood Count 7.4 K/mm3 (4.4-11.0)
[2019-11-05 17:08] LABS: Anion Gap 3 (5-15); BUN 7 mg/dL (7-18); BUN/Creat Ratio 7.4 RATIO (10-20); Calcium,Total 9.3 mg/dL (8.5-10.1); Chloride 107 mmol/L (98-107); Creatinine, Serum 0.95 mg/dL (0.70-1.30); EST Glomerular Filtration Rate 98 mL/min (>60); Est Glom Filt Rate - Afr Amer 119 mL/min (>60); Estimated Creatinine Clearance 112.67 ml/min; Glucose 97 mg/dL (74-106); Potassium 4.1 mmol/L (3.5-5.1); Sodium Level 138 mmol/L (136-145)
[2019-11-05 18:08] LABS: Probe Check PASS; Specimen Processing Control PASS
[2019-11-05] MEDS: MethylPREDNISolone 125 MG/2 ML Vial IV (18:12)
[2019-11-05 18:14] VITALS: BP 137/102; PULSE 103; RESP 14; TEMP 36.8; O2SAT 97
--- NOTE | 2019-11-05 18:19 | ED.VISSUMM ---
- ER Visit Summary Date of Service: 11/05/19 Chief Complaint: [Shortness of breath] History of Present Illness: The patient is a 29 M [presents the emergency department shortness of breath for the last 2 months. Patient has had a cough. Patient had a chest x-ray 2 weeks ago and was diagnosed with pneumonia was started on Zithromax. Patient was also told he may need a CAT scan but would need approval from his insurance. Patient was ordered pulmonary function tests to be done and then possible referral to pulmonology will take place. 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 Patient states he had a COVID test 2 weeks ago that was negative. He is not had any fevers. He denies any chest pain. He denies sick contacts. Currently on Flovent and just finished Zithromax 3 days ago.] Physical Examination: [HEENT-PERRLA, EOMI. Cranial nerves II through XII grossly intact. TMs clear. Mucous membranes moist. No adenopathy. Cardiovascular-regular rate and rhythm without murmur or ectopy Lungs aerations bilaterally. No accessory muscle use or retractions. Occasional faint expiratory wheeze noted. Abdomen-normoactive bowel sounds, soft, nontender, no rebound or rigidity, no peritoneal signs. Extremities-intact ?4, normal range of motion, normal pulses, atraumatic] Test Results: [EKG obtained arrival showed sinus tachycardia with a ventricular rate of 117 bpm. CBC with differential was normal. Chemistries unremarkable. Troponin less than 0.015. COVID-[address] of the chest showed nothing acute. CTA chest showed some old granulomatous disease.] Emergency Department Course and Treatment: [IV line established. Patient was given Solu-Medrol 125 mg IV.] Treatment Plan: [Patient will be treated with prednisone for 5 days. Patient will be given referral to pulmonology for follow-up.] Disposition: [Discharged home in stable condition] Impression: [Asthmatic bronchitis] This note was generated with [employer] software. It may contain incorrect words, spelling, and punctuation that were not noted in review of the chart prior to signing ED Disposition - Plan for ED Patient: Referrals: Monroe Jennings DO [Primary Care Provider] -
--- NOTE | 2019-11-05 18:22 | ED.DEP ---
ED Disposition - Plan for ED Patient: Instructions: ED Bronchitis Asthmatic Prescriptions: Prednisone [Deltasone] 20 mg PO BID #10 tab Prescription Printed Albuterol Inhaler [Ventolin Hfa] 2 puff INHALATION Q4H PRN PRN #1 inhaler PRN Reason: Wheezing Prescription Printed Referrals: Monroe Jennings DO [Primary Care Provider] - 3-5 Days Deep Durbin MD [STAFF PHYSICIAN] - 3-5 Days
[2019-11-05 18:30] VITALS: PULSE 129; RESP 20
[2019-11-05] MEDS: Ipratropium/Albuterol Sulfate 3 ML AMPUL.NEB INHALATION (18:30)
[2019-11-05 18:49] VITALS: BP 135/96; PULSE 96; RESP 12; O2SAT 94
== END 2019-11-05 18:50 | disposition home or self-care (01) ==
LOC: ED 16:05
PROVIDERS: Emergency Provider Emergency Medicine; PCP Family Medicine
DX: J45.909 Unspecified asthma, uncomplicated (principal)
CPT/HCPCS: 71275; 80048; 84484; 85025; 87040; 87635; 93005; 94640; 94799; 96374; 99284; Q9967; A4216; U0003

== ENCOUNTER → 2019-12-02 06:52 | Outpatient (CLI) | payer MEDICAID, SELFPAY ==
[2019-11-05 15:43] VITALS: BMI 25.1
--- NOTE | 2019-12-02 10:22 | PFTCOMP_ITS ---
COMPLETE PULMONARY FUNCTION TEST INTERPRETATION Brief HPI: Patient is a 29 year old male, currently under the care of Dr. Jennings, who presents to [facility] for complete pulmonary function tests secondary to diagnosis of cough. Respiratory therapist reports good effort and reproducible results. Interpretation: Forced expiration spirometry shows no large airways obstructive ventilatory defect with an FEV1 of 75% predicted. There is no significant bronchodilator response by strict ATS criteria. Spirograms are of good quality and plateau normally. The respiratory flow volume loop shows a normal pattern. Lung volumes by body plethysmography show a normal total lung capacity at 7.8 L, 110% predicted. FRC and RV are elevated out of proportion. Lung volume measurements are consistent with air-trapping. Diffusion capacity by carbon monoxide is normal at 99% predicted. The airway resistance is normal. No previous pulmonary function tests were available for review. Impression: These pulmonary function tests are within normal limits. Could consider bronchoprovocation study if asthma is being considered.
== END ==
PROVIDERS: PCP Family Medicine; Referring Provider Family Medicine; Visit Provider Family Medicine
DX: R05 Cough (principal)
CPT/HCPCS: 94060; 94726; 94729

== ENCOUNTER → 2019-12-29 06:53 | Outpatient (CLI) | payer MEDICAID, SELFPAY ==
[2019-12-29] MEDS: Methacholine Chloride 18 ml neb kit IH (07:15)
--- NOTE | 2019-12-29 14:20 | BRONCHALL ---
Bronchoprovocation Challenge - Bronchoprovocation Challenge Bronchoprovocation Challenge: BRONCHOPROVOCATION STUDY INTERPRETATION Brief HPI: Patient is a 29 year old male, currently under the care of Dr. Jennings, who presents to [facility] for a bronchoprovocation study secondary to diagnosis of cough. Respiratory therapist reports good effort and reproducible results. Interpretation: Initial spirometry showed no large airways obstructive ventilatory defect. The patient was then given increasingly concentrated doses of methacholine in a stepwise fashion, using a modified ATS protocol. The patient?s maximum reduction in FEV1 was 14 percent predicted. Impression: Negative Bronchoprovocation study. This is NOT consistent with the diagnosis of asthma.
== END ==
PROVIDERS: PCP Family Medicine; Referring Provider Family Medicine; Visit Provider Family Medicine
DX: R05 Cough (principal); R06.00 Dyspnea, unspecified
CPT/HCPCS: 94070; 95070

== ENCOUNTER 2020-04-04 19:47 | Emergency (ER) | payer MEDICAID, SELFPAY ==
[2020-01-27 10:56] VITALS: BMI 24.0
[2020-04-04 19:48] VITALS: BP 141/84; PULSE 95; RESP 20; TEMP 36.6; O2SAT 99; BMI 24.3
[2020-04-04 20:27] VITALS: BP 124/101; PULSE 96; RESP 15; O2SAT 98
--- NOTE | 2020-04-04 20:30 | RAD_ITS ---
STUDY: X-RAY CHEST REASON FOR EXAM: Male, 29 years old. Chest pain TECHNIQUE: Frontal view of the chest COMPARISON: 10/26/19 FINDINGS: The lungs are clear. There are no pleural effusions. There is no pneumothorax. The heart is normal in size. The visualized osseous structures are within normal limits. RAD/Chest 1 View (Portable) IMPRESSION: No acute thoracic pathology. Electronically Signed: Ryne Flynn MD at 21:54 EST Tel , Service support ,
--- NOTE | 2020-04-04 20:39 | EKG12_ITS ---
Test Reason : CP Blood Pressure : / mmHG Vent. Rate : 088 BPM Atrial Rate : 088 BPM P-R Int : 138 ms QRS Dur : 092 ms QT Int : 352 ms P-R-T Axes : 070 116 067 degrees QTc Int : 425 ms Normal sinus rhythm Normal ECG Confirmed by LOGAN RIVERA, CELSO ([id number]), videotape editor SD DENNIS ([id number]) on 04/10/2020 12:48:21 PM Referred By: MINISTERIO Confirmed By:CELSO FORD MD
[2020-04-04] MEDS: Mag Hydrox/Al Hydrox/Simeth 30 ML UDC PO (21:44)
[2020-04-04 21:47] VITALS: BP 135/96; PULSE 107; RESP 11; O2SAT 97
--- NOTE | 2020-04-04 22:07 | ED.DCSUM_ITS ---
- ER Visit Summary Date of Service: 04/04/20 Chief Complaint: [Chest pain] History of Present Illness: The patient is a 29 M [sent to the emergency department with complaint of chest pain for the last 2 days. Patient's had some intermittent pain in the left side of his chest that at times is sharp and wors e with movement and breathing. He denies any radiation into the arm or neck although he does state at times he goes through to his back. He has had no recent travel. No history of PE or DVT. No family history of connective tissue disorders such as Marfan's. Patient does have history of GERD as well as anxiety and depression. Patient denies recent illness and no exposures to Covid. Patient does state that he had a cough a few days ago but that resolved overnight and has not had any issue. He denies loss of taste or smell.] Physical Examination: [HEENT-PERRLA, EOMI. Cranial nerves II through XII grossly intact. TMs clear. Mucous membranes moist. No adenopathy. Cardiovascular-regular rate and rhythm without murmur or ectopy Lungs-clear to auscultation, chest wall stable without crepitus or subcu emphysema Abdomen-normoactive bowel sounds, soft, nontender, no rebound or rigidity, no peritoneal signs. Extremities-intact ?4, normal range of motion, normal pulses, atraumatic] Test Results: [EKG obtained on arrival shows sinus rhythm with a ventricular rate of 88 bpm with no acute segment changes. Chest x-ray 1 view interpreted by myself as no acute disease process without evidence of pneumothorax or pneumomediastinum or infiltrate. Radiology in agreement. D-dimer and troponin ordered and pending] Emergency Department Course and Treatment: [Patient was ordered a GI cocktail.] Treatment Plan: [Plan will be to turn patient care over to evening physician awaiting results of troponin and D-dimer.] Disposition: [Pending] Impression: [Chest pain] This note was generated with [employer] dictation software. It may contain incorrect words, spelling, and punctuation that were not noted in review of the chart prior to signing ED Disposition - Plan for ED Patient: Referrals: Monroe Jennings DO [Primary Care Provider] -
--- NOTE | 2020-04-04 22:09 | ED.DEP ---
ED Disposition - Plan for ED Patient: Instructions: ED Chest Pain, Uncertain Cause Referrals: Monroe Jennings DO [Primary Care Provider] - 3-5 Days
[2020-04-04 22:33] LABS: D-Dimer Quantitative (DVT/PE) 0.39 FEU/ug/m (0.27-0.49)
[2020-04-04 23:08] VITALS: BP 149/110; PULSE 102; RESP 16; O2SAT 99
== END 2020-04-04 23:09 | disposition home or self-care (01) ==
LOC: ED 20:47
PROVIDERS: Emergency Provider Emergency Medicine; PCP Family Medicine
DX: R07.9 Chest pain, unspecified (principal); K21.9 Gastro-esophageal reflux disease without esophagitis
CPT/HCPCS: 71045; 84484; 85379; 93005; 99284; A4216

== ENCOUNTER → 2020-05-26 | Outpatient (CLI) | payer MEDICAID, SELFPAY ==
[2020-05-02 10:45] VITALS: BMI 24.2
[2020-05-26 18:23] LABS: Absolute Lymphocyte Count 2.51 X10^3/uL (0.83-4.51); Absolute Neutrophil Count 6.5 X10^3/uL (2.0-7.7); Basophil# 0.12 X10^3/uL; Eosinophil# 1.48 X10^3/uL; Eosinophils% 12.9 % (0-5); Hematocrit 43.3 % (40-54); Hemoglobin 14.1 g/dL (13.0-16.5); Lymphocyte # 2.51 X10^3/ul (4.0); Lymphocyte % 21.9 % (19-41); Mean Corp Hgb Conc 32.6 g/dL (32-36); Mean Corpuscular Hgb 27.5 pg (27.0-32.0); Mean Corpuscular Volume 84.6 fL (80-94); Mean Platelet Vol. 12.3 fl (6.2-12.0); NRBC Flagged by Analyzer 0 % (0-5); Neutrophil % 56.9 % (47-70); POSITIVE COUNT YES; Platelet Count 246 K/mm3 (150-450); RBC Distribution Width CV 11.9 % (11.6-14.6); RBC Distribution Width SD 36.3 fl (35.1-43.9); Red Blood Count 5.12 M/mm3 (4.6-6.2); White Blood Count 11.5 K/mm3 (4.4-11.0)
[2020-05-26 18:26] LABS: Vitamin D,25 Hydroxy 111.2 ng/mL
[2020-05-26 18:30] LABS: Differential Indicated SCAN CRITERIA MET
[2020-05-26 18:39] LABS: Thyroid Stim Hormone (TSH) 0.93 uIU/mL (0.358-3.74)
[2020-05-26 19:05] LABS: Differential Comment SCANNED; Erythrocyte Sedimentation Rate 28 mm/hr (0-20)
[2020-06-02 07:07] LABS: Immunoglobulin E 127 IU/mL (6-495)
== END | disposition home or self-care (01) ==
PROVIDERS: PCP Family Medicine; Visit Provider Specialist
DX: Z00.00 Encounter for general adult medical examination without abnormal findings (principal)
CPT/HCPCS: 36415; 82306; 82785; 83520; 84443; 85025; 85652

== ENCOUNTER → 2021-11-15 | Outpatient (CLI) | payer MEDICAID, SELFPAY ==
[2021-11-15 18:41] LABS: Color, Urine Straw (Yellow); Glucose, Dipstick Normal (Normal); Ketone-Dipstick Negative (Negative); Leukocyte Esterase-Dipstick Negative /ul (Negative); Nitrite-Dipstick Negative (Negative); Occult Blood-Urine Negative /ul (Negative); Protein-Dipstick Negative (Negative); Urine Bilirubin Dipstick Negative (Negative); Urine Clarity Clear (Clear); Urine Urobilinogen Normal (Normal)
[2021-11-15 20:29] LABS: Chlamydia Trachomatis by PCR Negative (Negative); Neisserai gonorrhoeae by PCR Negative (Negative); Probe Check PASS; Sample Adequacy Control PASS; Specimen Processing Control PASS
== END | disposition home or self-care (01) ==
PROVIDERS: PCP Family Medicine; Visit Provider Family Medicine
DX: N48.89 Other specified disorders of penis (principal)
CPT/HCPCS: 81002; 87491; 87591

== ENCOUNTER → 2021-11-22 | Outpatient (CLI) | payer MEDICAID, SELFPAY ==
--- NOTE | 2021-11-22 07:25 | RAD_ITS ---
EXAM: XR CHEST, 2 VIEWS CLINICAL INDICATION: mold exposure and cough TECHNIQUE: Frontal and lateral views of the chest. This report was created using [employer] report generation technology. COMPARISON: 04/04/2020. FINDINGS: LUNGS AND PLEURAL SPACES: A cluster of ill-defined nodular infiltrates in the left lower lobe. Mild pulmonary hyperinflation with flattening of the hemidiaphragms. No pneumothorax. No effusion. HEART: Unremarkable. Cardiac silhouette not enlarged. MEDIASTINUM: Central airways and mediastinal contour are unremarkable. BONES/JOINTS: Unremarkable. SOFT TISSUES: Unremarkable. RAD/Chest PA and Lateral IMPRESSION: A cluster of nodular infiltrates in the left lower lobe, new since 04/04/2020. This is worrisome for pneumonia. HRCT chest will help clarify. Electronically Signed: Dread Elias MD at 8:48 EDT ,
== END | disposition home or self-care (01) ==
LOC: RAD 07:25
PROVIDERS: PCP Family Medicine; Referring Provider Internal Medicine Critical Care Medicine; Visit Provider Internal Medicine Critical Care Medicine
DX: R05.3 Chronic cough (principal)
CPT/HCPCS: 71046

== ENCOUNTER 2021-11-27 17:10 | Emergency (ER) | payer MEDICAID, SELFPAY ==
[2021-11-27 17:11] VITALS: BP 130/84; PULSE 72; RESP 15; TEMP 36.7; O2SAT 98; BMI 21.2
[2021-11-27 17:13] VITALS: BP 130/84; PULSE 72; RESP 15; TEMP 36.7; O2SAT 98
--- NOTE | 2021-11-27 18:07 | EKG12_ITS ---
Test Reason : SOB Blood Pressure : / mmHG Vent. Rate : 086 BPM Atrial Rate : 086 BPM P-R Int : 142 ms QRS Dur : 086 ms QT Int : 362 ms P-R-T Axes : 088 115 074 degrees QTc Int : 433 ms Normal sinus rhythm Right axis deviation Pulmonary disease pattern Abnormal ECG Confirmed by LOGAN RIVERA, CELSO ([id number]), photography editor DEBORA PHILLIPS ([id number]) on 11/28/2021 2:00:52 PM Referred By: Confirmed By:CELSO FORD MD
--- NOTE | 2021-11-27 18:08 | EX.ED.DYSGE1 ---
HPI History of Present Illness Chief Complaint: Shortness of Breath Informant: patient Narrative Narrative: Presents on symptoms since May dyspnea cough. Overall states a week ago diagnosed with pneumonia on chest x-ray [facility]. Friday started vomiting repeated yesterday today none. Tolerate oral fluids. No diarrhea. Continued cough. No fevers. No chest pains. History of GERD he states he has GI referral to be seen soon. No diagnosed past medical history. He states he had stool studies from a functional medicine doctor. Denies tobacco history. [facility] Medical History (Updated 11/27/21 @ 21:[address] Devante Watkins DO) No pertinent family history PUD (peptic ulcer disease) Home Medications bupropion HCl 100 mg tablet 300 mg PO DAILY 11/22/21 [History Last Taken Unknown] levofloxacin 500 mg tablet 500 mg PO Q24H #7 tabs 11/22/21 [Rx Last Taken Unknown] multivitamin 1 tab PO DAILY 11/22/21 [History Last Taken Unknown] natural d hist PO 11/22/21 [History Last Taken Unknown] quercetin 500 mg capsule 800 mg .Route DAILY 11/22/21 [History Last Taken Unknown] ondansetron 4 mg disintegrating tablet 4 mg PO Q6H PRN nausea and vomiting #10 tabs 11/27/21 [Rx Last Taken Unknown] Allergy/AdvReac Type Severity Reaction Status Date / Time banana AdvReac swelling Verified 11/27/21 17:14 cocoa AdvReac migraine Verified 11/27/21 17:14 soy AdvReac migraine Verified 11/27/21 17:14 Family History Other No pertinent family history Surgical History No pertinent past surgical history Social History Smoking Status: Never smoker Electronic Cigarette Use: not used substance use type: does not use ROS ROS ED Constitutional Constitutional ED: Denies chills, fever(s) or sweats Eyes Eyes: Denies change in vision ENT ENT ED: Denies dysphagia or sore throat Cardiovascular Cardiovascular: Denies chest pain, leg edema, palpitations or racing heartbeat Respiratory/Chest Respiratory/Chest: Reports cough; Denies dyspnea or dyspnea on exertion Gastrointestinal Gastrointestinal: Reports vomiting; Denies abdominal pain, diarrhea or nausea Genitourinary Genitourinary ED: Denies dysuria, hematuria or urinary frequency Musculoskeletal Musculoskeletal: Denies back pain, extremity pain or neck pain Integumentary Denies rash or wounds Neurologic Neurologic: Denies headache(s), paresthesias or weakness EXAM Physical Exam Const Vital Signs: 11/27/21 17:11 11/27/21 17:13 11/27/21 17:44 Temperature 98.1 F 98.1 F Temperature Source Temporal Temporal Pulse Rate 72 72 Respiratory Rate 15 15 Respiratory Effort Normal Respiratory Depth Normal Respiratory Pattern Normal Blood Pressure 130/84 H 130/84 H Blood Pressure Mean 99 99 Pulse Ox 98 98 Oxygen Delivery Method Room Air Room Air 11/27/21 19:37 11/27/21 21:28 Temperature Temperature Source Pulse Rate 88 88 Respiratory Rate 19 H 20 H Respiratory Effort Respiratory Depth Respiratory Pattern Blood Pressure Blood Pressure Mean Pulse Ox 97 99 Oxygen Delivery Method Room Air Positive well nourished and well developed Constitutional Narrative: Occasional coughing during exam. General Appearance ED: well developed and NAD HEENT Reports moist mucous membranes normocephalic and atraumatic Eyes PERRL, EOMs intact bilaterally and conjunctivae normal General Eye ED: Yes normal appearance of both eyes Neck no lymphadenopathy and supple General: Negative for tenderness Chest Wall Chest: Negative for tenderness Resp normal respiratory effort and normal air movement Effort and Inspection: symmetric chest movement; Negative for respiratory distress Cardio regular rate, regular rhythm and no murmurs Peripheral Pulses: pulses 2+ throughout GI normal to inspection, nondistended, normoactive bowel sounds and non-tender Palpation: Negative for guarding or rebound tenderness present Back/Spine no CVA tenderness and no thoracic nor lumbar tenderness Extremity normal to inspection General Extremety ED: Negative for edema or tenderness General Extremity: Negative for edema Neuro oriented x3 and no sensory deficits noted Sensorium / Orientation: awake and alert Skin no rashes or lesions noted and no wounds MDM MDM MDM Narrative Medical decision making narrative: Patient reports near syncope vomiting of the last 2 days. He has moist mucosal membranes. EKG normal. Labs obtained normal chest x-ray 2 views reviewed myself read by radiology as unchanged nodular infiltrates left lower lobe. He has 1 more day of Levaquin. Clinically stable vital stable 97% on room air COVID test negative. He is reassured. Continue oral fluids. Prescription for Zofran to use as needed. Follow-up as outpatient. All questions were answered. Lab Data Attestation: I reviewed the patient's lab results. Labs: Laboratory Results - last 24 hr 11/27/21 11/27/21 18:19 18:19 WBC 6.5 RBC 5.46 Hgb 14.8 Hct 46.1 MCV 84.4 MCH 27.1 MCHC 32.1 RDW Std Deviation 39.5 RDW Coeff of Mikayla 13.0 Plt Count 182 MPV 11.2 Immature Gran % (Auto) 0.300 Neut % (Auto) 53.9 Lymph % (Auto) 35.5 Glasscock % (Auto) 7.0 Eos % (Auto) 2.8 Baso % (Auto) 0.5 Absolute Neuts (auto) 3.5 Absolute Lymphs (auto) 2.32 Nucleated RBC % 0 Sodium 141 Potassium 3.9 Chloride 104 Carbon Dioxide 30.0 Anion Gap 7 BUN 7 Creatinine 0.84 Estim Creat Clear Calc 115.56 Est GFR (MDRD) Af Amer 134 Est GFR (MDRD) Non-Af 111 BUN/Creatinine Ratio 8.3 L Glucose 100 Calcium 9.9 Radiography Diagnostic Testing: Clinical Impression(s) from Imaging Studies Chest X-Ray 11/27/21 18:18 IMPRESSION: 1. Unchanged cluster of nodular infiltrates at the left lower lobe. 2. Redemonstration of mild tenting along the left hemidiaphragm. 3. No new or worsening cardiopulmonary disease otherwise. Electronically Signed: Puneet Ramesh MD at 18:33 EDT , EKG Initial EKG: Attestation: I personally reviewed and interpreted this EKG as follows: Comments: Sinus rate of 86, no ST or T wave changes Discharge Plan Triage Chief Complaint: Shortness of Breath ED Provider: Devante Watkins Dx/Rx/DC Orders Clinical Impression: Near syncope, Nausea and vomiting, Pneumonia Instructions: When You Have Pneumonia, ED Near-Fainting, Uncertain Cause, ED Vomiting (Adult) Prescriptions: New ondansetron 4 mg tablet,disintegrating 4 mg PO Q6H PRN (Reason: nausea and vomiting) Qty: 10 0RF No Action multivitamin Tablet 1 tab PO DAILY quercetin 500 mg capsule 800 mg .Route DAILY Rx Instructions: by mouth natural d hist PO Rx Instructions: daily supplement levofloxacin 500 mg tablet 500 mg PO Q24H Qty: 7 0RF bupropion HCl 100 mg tablet 300 mg PO DAILY Primary Care Provider: Monroe Jennings Referrals: Monroe Jennings DO [Primary Care Provider] - 5-7 Days Activity Restrictions/Additional Instructions: Stable infiltrate on chest x-ray. Finish your antibiotics. Continue oral fluids. Nausea medicines as needed. Follow-up with your doctor. Disposition Disposition: Home, Self Care Discharge Date/Time: 11/27/21 21:29
--- NOTE | 2021-11-27 18:18 | RAD_ITS ---
EXAM: XR CHEST, 2 VIEWS CLINICAL INDICATION: cough TECHNIQUE: Frontal and lateral views of the chest. This report was created using [employer] report generation technology. COMPARISON: 11/22/2021 FINDINGS: See Impression. RAD/Chest PA and Lateral IMPRESSION: 1. Unchanged cluster of nodular infiltrates at the left lower lobe. 2. Redemonstration of mild tenting along the left hemidiaphragm. 3. No new or worsening cardiopulmonary disease otherwise. Electronically Signed: Puneet Ramesh MD at 18:33 EDT ,
[2021-11-27 18:28] LABS: Absolute Lymphocyte Count 2.32 X10^3/uL (0.83-4.51); Absolute Neutrophil Count 3.5 X10^3/uL (2.0-7.7); Basophil# 0.03 X10^3/uL; Basophil% 0.5 % (0-1); Eosinophil# 0.18 X10^3/uL; Eosinophils% 2.8 % (0-5); Hematocrit 46.1 % (40-54); Hemoglobin 14.8 g/dL (13.0-16.5); Lymphocyte # 2.32 X10^3/ul (0.83-4.51); Lymphocyte % 35.5 % (19-41); Mean Corp Hgb Conc 32.1 g/dL (32-36); Mean Corpuscular Hgb 27.1 pg (27.0-32.0); Mean Corpuscular Volume 84.4 fL (80-94); Mean Platelet Vol. 11.2 fl (6.2-12.0); Monocyte# 0.46 X10^3/uL; NRBC Flagged by Analyzer 0 % (0-5); Neutrophil # 3.52 X10^3/uL (2.7-7.7); Neutrophil % 53.9 % (47-70); Platelet Count 182 K/mm3 (150-450); RBC Distribution Width SD 39.5 fl (35.1-43.9); Red Blood Count 5.46 M/mm3 (4.6-6.2); White Blood Count 6.5 K/mm3 (4.4-11.0)
[2021-11-27 18:38] LABS: Anion Gap 7 (5-15); BUN 7 mg/dL (7-18); BUN/Creat Ratio 8.3 RATIO (10-20); Calcium,Total 9.9 mg/dL (8.5-10.1); Chloride 104 mmol/L (98-107); Creatinine, Serum 0.84 mg/dL (0.70-1.30); EST Glomerular Filtration Rate 111 mL/min (>60); Est Glom Filt Rate - Afr Amer 134 mL/min (>60); Estimated Creatinine Clearance 115.56 ml/min; Glucose 100 mg/dL (74-106); Potassium 3.9 mmol/L (3.5-5.1); Sodium Level 141 mmol/L (136-145)
[2021-11-27] MEDS: 0.9% Normal Saline 1,000 ML 1000 ML IV (18:39)
[2021-11-27 19:37] VITALS: PULSE 88; RESP 19; O2SAT 97
[2021-11-27 21:28] VITALS: PULSE 88; RESP 20; O2SAT 99
== END 2021-11-27 21:29 | disposition home or self-care (01) ==
PROVIDERS: Emergency Provider Emergency Medicine; PCP Family Medicine; Visit Provider Emergency Medicine
DX: J18.9 Pneumonia, unspecified organism (principal); R55 Syncope and collapse
CPT/HCPCS: 71046; 80048; 85025; 87811; 93005; 96360; 96361; 99284; A4216

== ENCOUNTER → 2021-12-04 | Outpatient (CLI) | payer MEDICAID, SELFPAY ==
--- NOTE | 2021-12-06 06:38 | PFT_ITS ---
INTRODUCTION: The patient is a 31-year-old male that presents for pulmonary function studies secondary to a diagnosis of cough. Respiratory therapy reported good patient effort. Bronchodilators were used during testing. INTERPRETATION: Forced expiration spirometry demonstrates no evidence of a large airways obstructive ventilatory defect. There was no significant response to aerosolized bronchodilators. Spirograms are of good quality and plateau normally. Body plethysmography was performed and demonstrated a decreased TLC to 5.47 L, 80% of predicted, indicative of a mild restrictive ventilatory impairment. Diffusing capacity by single breath CO was within normal limits. IMPRESSION: Isolated mild restrictive ventilatory impairment with preserved diffusing cap acity.
== END | disposition home or self-care (01) ==
LOC: PSN 08:09
PROVIDERS: PCP Family Medicine; Referring Provider Internal Medicine Critical Care Medicine; Visit Provider Internal Medicine Critical Care Medicine
DX: R05.9 Cough, unspecified (principal)
CPT/HCPCS: 94060; 94726; 94729

== ENCOUNTER → 2022-01-01 | Outpatient (CLI) | payer MEDICAID, SELFPAY ==
--- NOTE | 2022-01-01 14:53 | CT_ITS ---
INDICATION: Follow-up pneumonia. Concern for fungal ball per air conditioning specialist. EXAMINATION: CT CHEST WITHOUT CONTRAST - CT Chest W/O Contrast Injection TECHNIQUE: Helically acquired images were obtained of the chest. A radiation dose optimization technique was used for this scan. IV Contrast dosage and agent: None. COMPARISON: Chest, 11/27/2021. CTA of the chest, 11/05/2019. FINDINGS: LUNGS, PLEURA AND LARGE AIRWAYS: The lungs are well expanded. There is a 6 mm calcified granuloma in the left lower lobe with associated atelectasis and pleural thickening. There is questionable consolidation slightly more inferiorly. There are also 2 small calcified granulomata in the superior segment of the left lower lobe posterior to the left hilum. The lungs are otherwise clear. No pneumothorax. THYROID: No thyroid lesions. HEART AND PERICARDIUM: Heart size is normal. No pericardial effusion. CORONARY ARTERIES: Coronary artery calcification are not present VESSELS: Thoracic aorta is not dilated. Normal pulmonary arteries. MEDIASTINUM AND MATTHEW: Normal mediastinum. There are calcified lymph nodes in the left hilum. Esophagus is unremarkable. No hiatal hernia. UPPER ABDOMEN: No acute pathology. Small calcified granuloma is seen in the spleen. BONES: No suspicious lytic or blastic abnormality. CT/Chest without Contrast IMPRESSION: 1. Old granulomatous disease. 2. Question atelectasis versus associated infiltrate left lower lobe adjacent to a larger calcified lymph node. The possibility of underlying mass cannot be entirely ruled out. There is no evidence of cavitation or fungal ball. Electronically Signed: Mehdi Magaña DO at 16:27 EDT ,
[2022-01-01 15:40] LABS: Absolute Lymphocyte Count 2.04 X10^3/uL (0.83-4.51); Absolute Neutrophil Count 4.1 X10^3/uL (2.0-7.7); Basophil# 0.06 X10^3/uL; Basophil% 0.9 % (0-1); Eosinophils% 2.8 % (0-5); Hemoglobin 14.9 g/dL (13.0-16.5); Lymphocyte # 2.04 X10^3/ul (0.83-4.51); Mean Corp Hgb Conc 31.7 g/dL (32-36); Mean Corpuscular Hgb 27.4 pg (27.0-32.0); Mean Corpuscular Volume 86.4 fL (80-94); Mean Platelet Vol. 11.5 fl (6.2-12.0); Monocyte# 0.61 X10^3/uL; Monocyte% 8.7 % (0-10); NRBC Flagged by Analyzer 0 % (0-5); Neutrophil # 4.09 X10^3/uL (2.7-7.7); Neutrophil % 58.2 % (47-70); Platelet Count 212 K/mm3 (150-450); RBC Distribution Width SD 40.4 fl (35.1-43.9); Red Blood Count 5.44 M/mm3 (4.6-6.2)
[2022-01-01 16:39] LABS: AST(SGOT) 13 U/L (15-37); Alanine Aminotransfer ALT/SGPT 19 U/L (16-61); Albumin, Serum 3.9 g/dL (3.2-5.0); Alkaline Phosphatase 84 U/L (45-117); Anion Gap 2 (5-15); BUN 8 mg/dL (7-18); Bilirubin, Direct 0.11 mg/dL (0.00-0.30); Chloride 106 mmol/L (98-107); EST Glomerular Filtration Rate 118 mL/min (>60); Est Glom Filt Rate - Afr Amer 142 mL/min (>60); Glucose 71 mg/dL (74-106); Potassium 3.9 mmol/L (3.5-5.1); Protein, Total 7.9 g/dL (6.4-8.2); Sodium Level 139 mmol/L (136-145); Troponin-I HS 3 pg/mL (3.0-78.0); Uric Acid 4.8 mg/dL (3.5-7.2); Vitamin D,25 Hydroxy 53.8 ng/mL
== END | disposition home or self-care (01) ==
PROVIDERS: Nurse Practitioner; PCP Family Medicine; Referring Provider Internal Medicine Critical Care Medicine; Visit Provider Internal Medicine Critical Care Medicine
DX: J18.9 Pneumonia, unspecified organism (principal); R00.2 Palpitations; E55.9 Vitamin D deficiency, unspecified; D72.10 Eosinophilia, unspecified
CPT/HCPCS: 36415; 71250; 80051; 80076; 82306; 82565; 82947; 84484; 84520; 84550; 85025

== ENCOUNTER → 2022-02-19 | Outpatient (CLI) | payer MEDICAID, SELFPAY ==
--- NOTE | 2022-02-19 15:47 | RAD_ITS ---
STUDY: X-RAY CHEST REASON FOR EXAM: Male, 31 years old. CHEST PAIN COUGH TECHNIQUE: XR Chest 2 Views COMPARISON: 11.27.21 FINDINGS: There is no demonstrated pleural abnormality. Increased nodularity and infiltrate in the left midlung. Normal size heart. Normal mediastinum and eladio. Normal visualized pulmonary arteries. Normal visualized aortic arch and descending thoracic aorta. Normal visualized thoracic spine. Normal visualized ribs, clavicles, and shoulders. There is no demonstrated abnormality of the visualized soft tissue structures of the upper abdomen. RAD/Chest PA and Lateral IMPRESSION: Increased nodularity and infiltrate in the left midlung. Electronically Signed: Erwin Cesar MD at 17:23 EST ,
== END | disposition home or self-care (01) ==
LOC: MTRAD 15:46
PROVIDERS: PCP Family Medicine; Referring Provider Family Medicine; Visit Provider Family Medicine
DX: R05.9 Cough, unspecified (principal)
CPT/HCPCS: 71046

== ENCOUNTER → 2022-05-16 | Outpatient (CLI) | payer MEDICAID, SELFPAY ==
--- NOTE | 2022-05-16 17:49 | CT_ITS ---
STUDY: CT CHEST WITHOUT CONTRAST REASON FOR EXAM: Male, 32 years old. Eval LLL infiltrate RADIATION DOSAGE (If Supplied By Facility): CTDIvol = ( 6.41 ) mGy, DLP = ( 233.76 ) mGycm TECHNIQUE: Transaxial imaging was performed without the administration of intravenous contrast material. Multiplanar coronal and sagittal images were reformatted. Individualized dose optimization techniques were used for this CT. COMPARISON: Comparison is made with prior study dated November 01, 2021. FINDINGS: CHEST Stable small bilateral benign-appearing axillary lymph nodes. Calcified granuloma in the peripheral aspect of the left lower lobe. Stable infiltrate in the peripheral lateral aspect of the left lower lobe. The previously seen nodular density in the posteromedial aspect of the left lower lobe has resolved. There is no demonstrated pleural abnormality. Normal heart and pericardium. Coronary artery calcification is not present. Normal mediastinum. Calcified left hilar lymph nodes. Normal unenhanced pulmonary arteries. Normal aorta arch and descending thoracic aorta. Normal osseous structures. There is no demonstrated abnormality of the visualized upper abdomen. CT/Chest without Contrast IMPRESSION: Persistent pleural-parenchymal changes at the left lung base. The previously seen small nodular density in the medial superior segment of the left lower lobe has cleared. Electronically Signed: Shantanu Lorenzana MD at 13:00 EST ,
== END | disposition home or self-care (01) ==
LOC: CT 17:48
PROVIDERS: PCP Family Medicine; Referring Provider Internal Medicine Critical Care Medicine; Visit Provider Internal Medicine Critical Care Medicine
DX: R05.9 Cough, unspecified (principal)
CPT/HCPCS: 71250

== ENCOUNTER 2022-09-04 21:40 | Emergency (ER) | payer MEDICAID, SELFPAY ==
[2022-09-04 21:41] VITALS: BP 125/72; PULSE 91; RESP 15; TEMP 36.4; O2SAT 98; BMI 23.1
--- NOTE | 2022-09-04 21:57 | ED.VIS.DENTA ---
HPI History of Present Illness Chief Complaint: Dental Informant: patient Onset/Context/Timing Onset: Yesterday Context: Gradual Onset Narrative Narrative: 68Patient presents with increasing dental pain for 2 days. No work done earlier this month including a tooth extraction and some fillings. He is scheduled to go back to see his dentist for more work next week. He states his pain is been doing well but increased over the past 2 days. Last night he took 2 tabs of [place] to help him sleep and then felt loopy. He is concerned about infection. He has had no fever or drainage from his gums. [facility] Medical History No pertinent family history PUD (peptic ulcer disease) Home Medications bupropion HCl 100 mg tablet 300 mg PO DAILY 11/22/21 [History Last Taken Unknown] levofloxacin 500 mg tablet 500 mg PO Q24H #7 tabs 11/22/21 [Rx Last Taken Unknown] multivitamin 1 tab PO DAILY 11/22/21 [History Last Taken Unknown] natural d hist PO 11/22/21 [History Last Taken Unknown] quercetin 500 mg capsule 800 mg .Route DAILY 11/22/21 [History Last Taken Unknown] amoxicillin 500 mg capsule 500 mg PO TID #30 caps 09/04/22 [Rx Last Taken Unknown] Allergy/AdvReac Type Severity Reaction Status Date / Time nickel Allergy Intermediate Rash Verified 09/04/22 21:43 almond Allergy Other Verified 09/04/22 21:43 banana AdvReac swelling Verified 09/04/22 21:43 cocoa AdvReac migraine Verified 09/04/22 21:43 soy AdvReac migraine Verified 09/04/22 21:43 Family History Other No pertinent family history Surgical History No pertinent past surgical history Social History Smoking Status: Never smoker Electronic Cigarette Use: not used substance use type: does not use ROS ROS ED Constitutional Constitutional ED: Denies chills or fever(s) Eyes Eyes: Denies change in vision or discharge from eye(s) ENT ENT ED: Reports other Details: Left-sided dental pain ; Denies discharge from eye(s), rhinorrhea or sore throat Cardiovascular Cardiovascular: Denies chest pain or palpitations Respiratory/Chest Respiratory/Chest: Denies cough or dyspnea Gastrointestinal Gastrointestinal: Denies abdominal pain, nausea or vomiting Genitourinary Genitourinary ED: Denies difficulty urinating or dysuria Musculoskeletal Musculoskeletal: Denies back pain or extremity pain Integumentary Denies Abrasions or rash Neurologic Neurologic: Denies headache(s) or weakness Psychiatric Psychiatric: Denies anxiety or depression Allergic/Immunologic Allergic/Immunologic ED: Denies lip swelling or urticaria EXAM Physical Exam Const Vital Signs: 09/04/22 21:41 Temperature 97.5 F L Temperature Source Temporal Pulse Rate 91 Respiratory Rate 15 Blood Pressure 125/72 H Blood Pressure Mean 89 Pulse Ox 98 Oxygen Delivery Method Room Air Positive well nourished and well developed General Appearance ED: well developed HEENT Reports normocephalic and head/scalp atraumatic HEENT Narrative: No facial edema or erythema. Intraoral examination reveals recently filled molars in the left maxillary region. No significant surrounding gum edema. Posterior pharynx exam is normal. There is no trismus. There is no evidence of Rogerio's angina. Eyes PERRL and EOMs intact bilaterally Neck supple Chest Wall inspection of chest normal and palpation of chest normal Resp normal respiratory effort and clear to auscultation bilaterally Cardio regular rate, regular rhythm and no murmurs GI normal to inspection, nondistended, normoactive bowel sounds Palpation: soft Extremity normal to inspection Neuro oriented x3 and no sensory deficits noted Sensorium / Orientation: alert Motor Exam: strength 5/5 throughout Psych mental status grossly normal Skin no rashes or lesions noted MDM MDM MDM Narrative Medical decision making narrative: Patient did have a prescription for [place] filled on August 22 for 10 tabs. He states he still has some of this available to use. He has also been using ibuprofen and Aleve to control his pain. He did well with amoxicillin when it was written for him earlier this month. We will write him another prescription for amoxicillin and he will follow with his dentist next week as scheduled. Discharge Plan Triage Chief Complaint: Dental ED Provider: Linda Plascencia Dx/Rx/DC Orders Clinical Impression: Odontalgia Instructions: ED Dental Pain Prescriptions: New amoxicillin 500 mg capsule 500 mg PO TID Qty: 30 0RF No Action multivitamin Tablet 1 tab PO DAILY quercetin 500 mg capsule 800 mg .Route DAILY Rx Instructions: by mouth natural d hist PO Rx Instructions: daily supplement levofloxacin 500 mg tablet 500 mg PO Q24H Qty: 7 0RF bupropion HCl 100 mg tablet 300 mg PO DAILY Primary Care Provider: Monroe Jennings Referrals: Monroe Jennings DO [Primary Care Provider] - Activity Restrictions/Additional Instructions: Follow-up with your dentist next week as scheduled. Disposition Disposition: Home, Self Care
[2022-09-04] MEDS: AMOXICILLIN 500 MG CAPSULE PO (22:21)
== END 2022-09-04 22:25 | disposition home or self-care (01) ==
PROVIDERS: Emergency Provider Emergency Medicine; PCP Family Medicine; Visit Provider Emergency Medicine
DX: K08.89 Other specified disorders of teeth and supporting structures (principal)
CPT/HCPCS: 99283

== ENCOUNTER → 2022-10-16 | Outpatient (CLI) | payer MEDICAID, SELFPAY ==
[2022-10-16 15:16] LABS: Absolute Lymphocyte Count 2.36 X10^3/uL (0.83-4.51); Absolute Neutrophil Count 3.8 X10^3/uL (2.0-7.7); Basophil# 0.06 X10^3/uL; Basophil% 0.8 % (0-1); Eosinophil# 0.25 X10^3/uL; Eosinophils% 3.5 % (0-5); Hematocrit 46.2 % (40-54); Hemoglobin 14.6 g/dL (13.0-16.5); Lymphocyte # 2.36 X10^3/ul (0.83-4.51); Lymphocyte % 33.3 % (19-41); Mean Corp Hgb Conc 31.6 g/dL (32-36); Mean Corpuscular Hgb 27.4 pg (27.0-32.0); Mean Corpuscular Volume 86.8 fL (80-94); Monocyte# 0.59 X10^3/uL; Monocyte% 8.3 % (0-10); NRBC Flagged by Analyzer 0 % (0-5); Neutrophil % 53.7 % (47-70); Platelet Count 217 K/mm3 (150-450); RBC Distribution Width CV 12.6 % (11.6-14.6); RBC Distribution Width SD 39.8 fl (35.1-43.9); Red Blood Count 5.32 M/mm3 (4.6-6.2); White Blood Count 7.1 K/mm3 (4.4-11.0)
[2022-10-16 15:44] LABS: ALB/GLOB Ratio 0.9 RATIO (0.9-2.4); AST(SGOT) 35 U/L (15-37); Alanine Aminotransfer ALT/SGPT 34 U/L (16-61); Albumin, Serum 3.5 g/dL (3.2-5.0); Alkaline Phosphatase 90 U/L (45-117); Anion Gap 7 (5-15); BUN 10 mg/dL (7-18); Calcium,Total 8.7 mg/dL (8.5-10.1); Chloride 105 mmol/L (98-107); Creatinine, Serum 0.83 mg/dL (0.70-1.30); EST Glomerular Filtration Rate 112 mL/min (>60); Est Glom Filt Rate - Afr Amer 135 mL/min (>60); Ferritin 50 ng/mL (26-388); Glucose 91 mg/dL (74-106); Iron 58 ug/dL (65-175); Potassium 3.4 mmol/L (3.5-5.1); Protein, Total 7.5 g/dL (6.4-8.2); Sodium Level 139 mmol/L (136-145); Vitamin B12 541 pg/mL (211-911); Vitamin D,25 Hydroxy 25.6 ng/mL
== END | disposition home or self-care (01) ==
LOC: BFHLAB 11:55
PROVIDERS: PCP Family Medicine; Referring Provider Family Medicine; Visit Provider Family Medicine
DX: D64.9 Anemia, unspecified (principal); E46 Unspecified protein-calorie malnutrition; E55.9 Vitamin D deficiency, unspecified; R79.89 Other specified abnormal findings of blood chemistry
CPT/HCPCS: 36415; 80053; 82306; 82607; 82728; 83540; 85025

== ENCOUNTER 2022-12-01 17:09 | Emergency (ER) | payer MEDICAID, SELFPAY ==
[2022-12-01 17:10] VITALS: BP 124/86; PULSE 91; RESP 20; TEMP 35.5; O2SAT 96; BMI 24.3
--- NOTE | 2022-12-01 17:22 | EX.ED.VIS.UR ---
HPI HPI - URI History of Present Illness Chief Complaint: Shortness of Breath Associated Symptoms Associated Symptoms: Positive for Nasal Congestion and Shortness of Breath Narrative Narrative: 32-year-old male who denies significant past medical history presents with cough and sore throat that he has had for the last 2 days. He is concerned about pneumonia. She last had pneumonia in February of last year. He denies any fevers or chills, no body aches. He states at times it is hard for him to breathe. He is a non-smoker. States out of all his upper respiratory infection type symptoms including rhinorrhea with mild nasal congestion, sore throat is the worst. ROS ROS ED ROS Narrative Constitutional: No fever, no chills. HEENT: Today sore throat. No neck pain. No loss of vision. Positive rhinorrhea. Cardiovascular: No chest pain. No palpitations. No pedal edema. Respiratory: Days of cough, occasional shortness of breath. Abdominal: No abdominal pain. No nausea. No vomiting. Genitourinary: No dysuria. No hematuria. Musculoskeletal: No myalgias. No arthralgias. Neurologic: No headaches. No dizziness. No lightheadedness. Skin: No rash. No change in color. Psychiatric: No depression. No anxiety. [facility] Medical History No pertinent family history Pneumonia PUD (peptic ulcer disease) Home Medications gabapentin 100 mg capsule 200 mg PO DAILY 12/01/22 [History Last Taken Unknown] omeprazole 20 mg capsule,delayed release 20 mg PO DAILY 12/01/22 [History Last Taken Unknown] Allergy/AdvReac Type Severity Reaction Status Date / Time nickel Allergy Intermediate Rash Verified 09/04/22 21:43 almond Allergy Other Verified 09/04/22 21:43 banana AdvReac swelling Verified 09/04/22 21:43 cocoa AdvReac migraine Verified 09/04/22 21:43 soy AdvReac migraine Verified 09/04/22 21:43 Family History Other No pertinent family history Surgical History No pertinent past surgical history Social History Smoking Status: Never smoker Electronic Cigarette Use: not used substance use type: does not use EXAM Physical Exam Narrative Exam Narrative: Afebrile. Vital signs noted. HEENT: Normocephalic. Atraumatic. PERRL, EOMI. Neck soft and supple. No point tenderness or step off. No pharyngeal erythema, no tonsillar exudate. Airway patent. No drooling or trismus. No meningismus. Cardiovascular: Regular rate and rhythm. No murmurs, rubs, or gallops appreciated. Respiratory: No tachypnea. Lungs clear to auscultation bilaterally. Gastrointestinal: Abdomen soft, nontender, with normoactive bowel sounds. No rebound or guarding. Neurological: Awake. Alert. Nonfocal, nonlateralizing. Skin: No rash. Normal color. No pallor. Musculoskeletal: No pedal edema. Full range of motion extremities. Const Vital Signs: 12/01/22 17:10 12/01/22 17:14 Temperature 95.9 F L Temperature Source Temporal Pulse Rate 91 Respiratory Rate 20 H Respiratory Effort Short of Breath Respiratory Pattern Tachypnea Blood Pressure 124/86 H Blood Pressure Mean 98 Pulse Ox 96 Oxygen Delivery Method Room Air MDM MDM MDM Narrative Medical decision making narrative: Patient has a pulse ox of 96% on room air without evidence of hypoxia. His lungs are clear to auscultation bilaterally he is moving a good amount of air, speaking in full sentences. Chest x-ray in 2 views will be obtained to rule out pneumonia or pneumothorax as a cause of his shortness of breath. Regarding his sore throat, he will be swabbed for strep, and additionally he was swabbed for COVID and influenza as well. I reviewed his respiratory swabs, he has negative for influenza a and B, and COVID. He is negative for strep pharyngitis as well. I do not feel antibiotics are indicated, but he will be given Decadron 8 mg orally as a one-time dose for his pharyngitis/throat inflammation. Chest x-ray in 2 views obtained and independently interpreted by myself shows no evidence of consolidation or pneumothorax. I do not feel antibiotics are indicated. I reviewed the radiology report which confirms my independent interpretation. At this point in time, he was given a note to be off work today and tomorrow and he will follow-up with his primary care physician. He will continue symptomatic therapy with [id number] medications and drinking plenty of oral fluids. I feel he be discharged safely home with follow-up and that he does not require observation or admission at this time. Return instructions to the emergency department were reviewed. Disposition is discharged home in stable condition. Lab Data Attestation: I reviewed the patient's lab results. Radiography Diagnostic Testing: Clinical Impression(s) from Imaging Studies Chest X-Ray 12/01/22 17:34 IMPRESSION: No radiographic evidence of acute cardiopulmonary disease. Electronically Signed: Erwin Cesar MD at 17:55 EDT Reading Location ID and State: [facility] / [place] , Service support , Discharge Plan Triage Chief Complaint: Shortness of Breath ED Provider: Dread Lee Dx/Rx/DC Orders Clinical Impression: URI (upper respiratory infection), Pharyngitis Instructions: ED Pharyngitis, Report Pending, ED URI, Viral, No Abx (Adult) Prescriptions: No Action gabapentin 100 mg capsule 200 mg PO DAILY omeprazole 20 mg capsule,delayed release(DR/EC) 20 mg PO DAILY Patient Comments: TAKE 1 CAPSULE BY MOUTH ONCE DAILY Stand Alone Forms: ED Work / School Excuse Primary Care Provider: Monroe Jennings Referrals: Monroe Jennings, [Primary Care Provider] - 1 Week if not improving Disposition Disposition: Home, Self Care
--- NOTE | 2022-12-01 17:34 | RAD_ITS ---
EXAM: XR CHEST, 2 VIEWS CLINICAL INDICATION: Cough, SOB TECHNIQUE: Frontal and lateral views of the chest. COMPARISON: No relevant prior studies available. FINDINGS: LUNGS AND PLEURAL SPACES: Unremarkable. No consolidation or edema. No pneumothorax. No effusion. HEART: Unremarkable. Cardiac silhouette not enlarged. MEDIASTINUM: Central airways and mediastinal contour are unremarkable. BONES/JOINTS: Unremarkable. SOFT TISSUES: Unremarkable. RAD/Chest PA and Lateral IMPRESSION: No radiographic evidence of acute cardiopulmonary disease. Electronically Signed: Erwin Cesar MD at 17:55 EDT ,
[2022-12-01] MEDS: dexAMETHasone 4 MG Tablet 8 MG PO (18:21)
== END 2022-12-01 18:28 | disposition home or self-care (01) ==
PROVIDERS: Emergency Provider Emergency Medicine; PCP Family Medicine; Visit Provider Emergency Medicine
DX: J06.9 Acute upper respiratory infection, unspecified (principal)
CPT/HCPCS: 71046; 87428; 87880; 99282

== ENCOUNTER 2023-01-19 16:04 | Emergency (ER) | payer MEDICAID, SELFPAY ==
[2023-01-19 16:06] VITALS: BP 130/99; PULSE 96; RESP 20; TEMP 36.3; O2SAT 96; BMI 22.7
--- NOTE | 2023-01-19 16:19 | EKG12_ITS ---
Test Reason : CP Blood Pressure : / mmHG Vent. Rate : 083 BPM Atrial Rate : 083 BPM P-R Int : 126 ms QRS Dur : 100 ms QT Int : 362 ms P-R-T Axes : 063 101 065 degrees QTc Int : 425 ms Normal sinus rhythm with sinus arrhythmia Rightward axis Incomplete right bundle branch block Borderline ECG When compared with ECG of 27-NOV-2021 18:14, Incomplete right bundle branch block is now Present Confirmed by LOGAN RIVERA, CELSO ([id number]), editor continuity and script DEBORA PHILLIPS ([id number]) on 02/05/2023 12:56:47 PM Referred By: Confirmed By:CELSO FORD MD
--- NOTE | 2023-01-19 16:21 | EX.ED.DYSGE1 ---
HPI <RODOLFO Rodriguez - Last Filed: 01/19/23 19:07> History of Present Illness Chief Complaint: Chest Pain Narrative Narrative: Patient is a 32-year-old male with history of peptic ulcer disease, who presents to the emergency department for 1 week of ongoing nausea and vomiting and coughing. Patient states he has a dry cough has been ongoing for the last 5 weeks. He has seen his PCP who is currently working him up for allergies. Patient states today, he vomited, had some blood in his stool earlier this morning. He has had bowel movement since with no blood. Patient states he does vomit 2-3 times daily for the last week. He states today after vomiting, he had pain to the left side of his chest and he is here for evaluation. PFSH <RODOLFO Rodriguez - Last Filed: 01/19/23 19:07> [facility] Medical History No pertinent family history Pneumonia PUD (peptic ulcer disease) Home Medications gabapentin 100 mg capsule 200 mg PO DAILY 12/01/22 [History Last Taken Unknown] omeprazole 20 mg capsule,delayed release 20 mg PO DAILY 12/01/22 [History Last Taken Unknown] benzonatate 100 mg capsule 200 mg (2 x 100 mg) PO TID #30 caps 01/19/23 [Rx Last Taken Unknown] doxycycline hyclate 100 mg capsule 100 mg PO BID #14 caps 01/19/23 [Rx Last Taken Unknown] prednisone 50 mg tablet 50 mg PO DAILY #5 tabs 01/19/23 [Rx Last Taken Unknown] Allergy/AdvReac Type Severity Reaction Status Date / Time nickel Allergy Intermediate Rash Verified 01/19/23 16:06 almond Allergy Other Verified 01/19/23 16:06 banana AdvReac swelling Verified 01/19/23 16:06 cocoa AdvReac migraine Verified 01/19/23 16:06 soy AdvReac migraine Verified 01/19/23 16:06 Family History Other No pertinent family history Surgical History No pertinent past surgical history Social History (Reviewed 12/01/22 @ 17: by Dread Lee MD) Smoking Status: Never smoker Electronic Cigarette Use: not used substance use type: does not use ROS <RODOLFO Rodriguez - Last Filed: 01/19/23 19:07> ROS ED ROS Narrative Constitutional: Negative for fever, chills, weight loss, weakness Eyes: Negative for vision loss, vision change, double vision ENT: Negative for any sore throat, ear pain, congestion Cardiovascular: Negative for any tightness, palpitations. Positive for chest pain Respiratory: Negative for any sputum production, hemoptysis, dyspnea, dyspnea on exertion, orthopnea. Positive for cough Gastrointestinal: Negative for any diarrhea, constipation, blood in stool, blood in vomit. Positive abdominal pain, nausea and : Negative for any urinary frequency, dysuria, retention, blood in urine Muscle skeletal: Negative for any myalgias, arthralgias, neck pain, back pain Neurological: Negative for any headache, syncope, numbness or tingling, dizziness Skin: Negative for any rashes, lumps, itching, abrasions, lacerations Psychiatric: Negative for any depression, anxiety, stress, suicidal ideation, homicidal ideation Hematologic: Negative for any easy bruising, excessive bruising, easy bleeding Allergies: Negative for any eczema, hives, rash EXAM <RODOLFO Rodriguez - Last Filed: 01/19/23 19:07> Physical Exam Narrative Exam Narrative: Vital signs reviewed. Patient did have a dry cough throughout the entire exam. HEET: Head normocephalic atraumatic, TMs clear bilaterally. Posterior pharynx is clear, moist mucous membranes. Nares clear bilaterally. Neck: Supple with no lymphadenopathy or tenderness. No signs of meningismus. Cardiac: Regular rate and rhythm no murmurs gallops or rubs, equal peripheral pulses bilaterally. Respiratory: Lungs clear to auscultation bilaterally. No chest tenderness. Abdomen: Soft, nontender, nondistended. No abdominal bruit or pulsatile masses. No hepatosplenomegaly Extremities: No peripheral edema, no signs of gross trauma or deformity. Active full range of motion of all extremities. Neuro: Cranial nerves II through XII intact, no focal neurological deficits. Skin: Clean dry and intact with no rash, purpura, petechiae, vesicles or pustules. Backs/flank: No CVA tenderness, no midline spinal tenderness, no deformity. Psych: Normal mood and affect. No SI, HI or acute psychosis. Const Vital Signs: 01/19/23 16:06 01/19/23 16:36 01/19/23 16:42 Temperature 97.3 F L Temperature Source Temporal Pulse Rate 96 76 Respiratory Rate 20 H 15 Respiratory Effort Normal Non-Labored Respiratory Pattern Normal Blood Pressure 130/99 H Blood Pressure Mean 109 Pulse Ox 96 Oxygen Delivery Method Room Air Positive well nourished and well developed General Appearance ED: well developed <Dr. Ariadna Sandoval DO - Last Filed: 01/23/23 23:41> Physical Exam Const Vital Signs: 01/19/23 16:06 01/19/23 16:36 01/19/23 16:42 Temperature 97.3 F L Temperature Source Temporal Pulse Rate 96 76 Respiratory Rate 20 H 15 Respiratory Effort Normal Non-Labored Respiratory Pattern Normal Blood Pressure 130/99 H Blood Pressure Mean 109 Pulse Ox 96 Oxygen Delivery Method Room Air MDM <RODOLFO Rodriguez - Last Filed: 01/19/23 19:07> MDM Lab Data Labs: Laboratory Results - last 24 hr 01/19/23 16:30 WBC 11.7 H RBC 5.16 Hgb 13.7 Hct 43.5 MCV 84.3 MCH 26.6 L MCHC 31.5 L RDW Std Deviation 37.2 RDW Coeff of Mikayla 12.3 Plt Count 236 MPV 10.8 Immature Gran % (Auto) 0.300 Neut % (Auto) 68.0 Lymph % (Auto) 21.3 Antelope % (Auto) 7.2 Eos % (Auto) 2.4 Baso % (Auto) 0.8 Absolute Neuts (auto) 8.0 H Absolute Lymphs (auto) 2.50 Nucleated RBC % 0 Sodium 136 Potassium 3.9 Chloride 102 Carbon Dioxide 28.0 Anion Gap 6 BUN 13 Creatinine 0.93 Estim Creat Clear Calc 113.74 Est GFR (MDRD) Af Amer 119 Est GFR (MDRD) Non-Af 99 BUN/Creatinine Ratio 14.0 Glucose 97 Calcium 8.9 Total Bilirubin 0.40 AST 11 L ALT 19 Alkaline Phosphatase 91 Troponin I High Sens 3 Total Protein 7.6 Albumin 3.5 Globulin 4.1 Albumin/Globulin Ratio 0.9 Lipase 28 Radiography Diagnostic Testing: Clinical Impression(s) from Imaging Studies Chest X-Ray 01/19/23 18:30 IMPRESSION: No change from 12/01/2022. Electronically Signed: Jesus Wheeler MD at 18:55 EST , EKG Sinus rhythm: Attestation: I personally reviewed and interpreted this EKG as follows: Interpretation: Sinus Rhythm Comments: Normal sinus rhythm, rate of 83 bpm, MN 126 ms, QRS duration 100 ms, no acute ST elevation, no acute infarct noted Treatment and Re-Evaluation :: Patient appears to be in no distress, vital signs are stable. Patient presents to the emergency department for ongoing cough, left-sided chest pain. Patient did receive a full work-up, this was concerning for any pneumonia, pneumothorax, reactive airway disease. Patient has been coughing for 5 weeks and receive basic laboratory values. Patient's CBC showed a slight leukocytosis white blood count 11.7, chemistries were unremarkable, lipase was negative, troponin was negative. EKG was unremarkable no evidence of any ACS or CT. Patient's 2 view chest x-ray that was interpreted by the ER physician showed chronic changes, no change from 12/01/2022. Patient did have relief of symptoms with breathing treatments. At this time, patient will be treated prophylactically with doxycycline for 7 days secondary to the cough, prednisone as well as Tessalon Perles. 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 He was given strict return precaution to return for any worsening nausea, vomiting, chest pain, shortness of breath. All questions answered, stable for discharge. <Dr. Ariadna Sandoval, DO - Last Filed: 01/23/23 23:41> [facility] Lab Data Attestation: I reviewed the patient's lab results. Labs: Laboratory Results - last 24 hr 01/19/23 16:30 WBC 11.7 H RBC 5.16 Hgb 13.7 Hct 43.5 MCV 84.3 MCH 26.6 L MCHC 31.5 L RDW Std Deviation 37.2 RDW Coeff of Mikayla 12.3 Plt Count 236 MPV 10.8 Immature Gran % (Auto) 0.300 Neut % (Auto) 68.0 Lymph % (Auto) 21.3 Antelope % (Auto) 7.2 Eos % (Auto) 2.4 Baso % (Auto) 0.8 Absolute Neuts (auto) 8.0 H Absolute Lymphs (auto) 2.50 Nucleated RBC % 0 Sodium 136 Potassium 3.9 Chloride 102 Carbon Dioxide 28.0 Anion Gap 6 BUN 13 Creatinine 0.93 Estim Creat Clear Calc 113.74 Est GFR (MDRD) Af Amer 119 Est GFR (MDRD) Non-Af 99 BUN/Creatinine Ratio 14.0 Glucose 97 Calcium 8.9 Total Bilirubin 0.40 AST 11 L ALT 19 Alkaline Phosphatase 91 Troponin I High Sens 3 Total Protein 7.6 Albumin 3.5 Globulin 4.1 Albumin/Globulin Ratio 0.9 Lipase 28 Radiography Diagnostic Testing: Clinical Impression(s) from Imaging Studies Chest X-Ray 01/19/23 18:30 IMPRESSION: No change from 12/01/2022. Electronically Signed: Jesus Wheeler MD at 18:55 EST , Treatment and Re-Evaluation :: Patient appears to be in no distress, vital signs are stable. Patient presents to the emergency department for ongoing cough, left-sided chest pain. Patient did receive a full work-up, this was concerning for any pneumonia, pneumothorax, reactive airway disease. Patient has been coughing for 5 weeks and receive basic laboratory values. Patient's CBC showed a slight leukocytosis white blood count 11.7, chemistries were unremarkable, lipase was negative, troponin was negative. EKG was unremarkable no evidence of any ACS or CT. Patient's 2 view chest x-ray that was interpreted by the ER physician showed chronic changes, no change from 12/01/2022. Patient did have relief of symptoms with breathing treatments. At this time, patient will be treated prophylactically with doxycycline for 7 days secondary to the cough, prednisone as well as Tessalon Perles. 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 He was given strict return precaution to return for any worsening nausea, vomiting, chest pain, shortness of breath. All questions answered, stable for discharge. I have personally performed a face to face assessment of the patient and have reviewed the BETTY Note. I performed a substantive portion of the visit including all aspects of the following. My pruett findings include: History is patient is a 32-year-old male presenting with 5-6 weeks of cough and now developing associated chest pain. I suspect the chest pain is from his significant coughing. In the ER he has a significant episode of coughing which is most consistent with bronchospasm. He does have some rhonchorous respiratory noises. Is given aerosol in the ER with improvement of symptoms. Cardiac work-up including troponin EKG are normal. Chest x-ray reviewed by myself as well as radiology does show no acute infiltrate but scarring of the superior segment of the left lower lobe. Patient is previously seen pulmonology for this. He will be placed on course of doxycycline due to his prolonged cough as well as a prescription for prednisone. He is given Tessalon Perles for further cough relief. Encouraged to use albuterol inhaler at home to help with bronchospasm. Encouraged to follow-up outpatient with pulmonology given the extensive duration of the cough. He verbalized agreement nursing with this plan. He is not hypoxic and I do not think he requires admission for further inpatient work-up/treatment. In addition he is PE RC negative and does not require work-up for pulmonary emboli. I have low suspicion for PE. Other additions or changes: [None] Discharge Plan Triage Chief Complaint: Chest Pain Other Complaint: GI Bleed ED Midlevel Provider: Sergo Wills ED Provider: Ariadna Sandoval Dx/Rx/DC Orders Clinical Impression: Cough, Mild reactive airways disease, Chest pain Instructions: Asthma Triggers Allergens, ED Cough Chronic Uncertain Cause Adult Prescriptions: New benzonatate 100 mg capsule 200 mg PO TID Qty: 30 0RF doxycycline hyclate 100 mg capsule 100 mg PO BID Qty: 14 0RF prednisone 50 mg tablet 50 mg PO DAILY Qty: 5 0RF No Action gabapentin 100 mg capsule 200 mg PO DAILY omeprazole 20 mg capsule,delayed release(DR/EC) 20 mg PO DAILY Patient Comments: TAKE 1 CAPSULE BY MOUTH ONCE DAILY Primary Care Provider: Monroe Jennings Referrals: Monroe Jennings DO [Primary Care Provider] - Activity Restrictions/Additional Instructions: Take medicines as prescribed. Please return here for any worsening symptoms Disposition Disposition: Home, Self Care Discharge Date/Time: 01/19/23 19:12
[2023-01-19] MEDS: Ketorolac 15 MG/ML Vial IV (16:34)
[2023-01-19] MEDS: 0.9% Normal Saline (1000mL) 1,000 ML 1000 ML IV (16:34)
[2023-01-19] MEDS: Ondansetron 4 MG/2 ML Vial IV (16:34)
[2023-01-19] MEDS: Mag Hydrox/Al Hydrox/Simeth 30 ML UDC PO (16:34)
[2023-01-19] MEDS: Ipratropium/Albuterol Sulfate 3 ML AMPUL.NEB INHALATION (16:35)
[2023-01-19 16:36] VITALS: PULSE 76; RESP 15
[2023-01-19 16:37] LABS: Basophil# 0.09 X10^3/uL; Basophil% 0.8 % (0-1); Eosinophil# 0.28 X10^3/uL; Eosinophils% 2.4 % (0-5); Hematocrit 43.5 % (40-54); Hemoglobin 13.7 g/dL (13.0-16.5); Lymphocyte % 21.3 % (19-41); Mean Corp Hgb Conc 31.5 g/dL (32-36); Mean Corpuscular Hgb 26.6 pg (27.0-32.0); Mean Corpuscular Volume 84.3 fL (80-94); Mean Platelet Vol. 10.8 fl (6.2-12.0); Monocyte# 0.85 X10^3/uL; Monocyte% 7.2 % (0-10); NRBC Flagged by Analyzer 0 % (0-5); Neutrophil # 7.97 X10^3/uL (2.7-7.7); Platelet Count 236 K/mm3 (150-450); RBC Distribution Width CV 12.3 % (11.6-14.6); RBC Distribution Width SD 37.2 fl (35.1-43.9); Red Blood Count 5.16 M/mm3 (4.6-6.2); White Blood Count 11.7 K/mm3 (4.4-11.0)
[2023-01-19 16:56] LABS: ALB/GLOB Ratio 0.9 RATIO (0.9-2.4); AST(SGOT) 11 U/L (15-37); Alanine Aminotransfer ALT/SGPT 19 U/L (16-61); Albumin, Serum 3.5 g/dL (3.2-5.0); Alkaline Phosphatase 91 U/L (45-117); Anion Gap 6 (5-15); BUN 13 mg/dL (7-18); Calcium,Total 8.9 mg/dL (8.5-10.1); Chloride 102 mmol/L (98-107); Creatinine, Serum 0.93 mg/dL (0.70-1.30); EST Glomerular Filtration Rate 99 mL/min (>60); Est Glom Filt Rate - Afr Amer 119 mL/min (>60); Estimated Creatinine Clearance 113.74 ml/min; Globulin 4.1 g/dL (2.2-4.2); Glucose 97 mg/dL (74-106); Lipase 28 U/L (13-75); Potassium 3.9 mmol/L (3.5-5.1); Protein, Total 7.6 g/dL (6.4-8.2); Sodium Level 136 mmol/L (136-145); Troponin-I HS 3 pg/mL (3.0-78.0)
--- NOTE | 2023-01-19 18:30 | RAD_ITS ---
STUDY: X-RAY CHEST REASON FOR EXAM: Male, 32 years old. cough TECHNIQUE: PA and lateral views of the chest. COMPARISON: 12/01/2022 FINDINGS: No change in scarring in the superior segment left lower lobe. There is no demonstrated pleural abnormality. Normal size heart. Normal mediastinum and eladio. Normal visualized pulmonary arteries. Normal visualized aortic arch and descending thoracic aorta. There is a dextroscoliosis of the thoracic spine. Normal visualized ribs, clavicles, and shoulders. There is no demonstrated abnormality of the visualized soft tissue structures of the upper abdomen. RAD/Chest PA and Lateral IMPRESSION: No change from 12/01/2022. Electronically Signed: Jesus Wheeler MD at 18:55 EST ,
[2023-01-19 19:03] VITALS: BP 129/88; PULSE 72; RESP 15; O2SAT 98
[2023-01-19 19:12] VITALS: BP 129/88; PULSE 76; RESP 15; O2SAT 98
== END 2023-01-19 19:12 | disposition home or self-care (01) ==
PROVIDERS: Nurse Practitioner; Emergency Provider Emergency Medicine; PCP Family Medicine; Visit Provider Emergency Medicine
DX: R05.9 Cough, unspecified (principal); J45.909 Unspecified asthma, uncomplicated; R07.9 Chest pain, unspecified
CPT/HCPCS: 71046; 80053; 83690; 84484; 85025; 93005; 94640; 96361; 96374; 96375; 99284; J7030; A4216; J2405

== ENCOUNTER 2023-05-13 09:44 | Emergency (ER) | payer MEDICAID, SELFPAY ==
[2023-05-13 09:44] VITALS: BP 116/78; PULSE 120; RESP 20; TEMP 35.4; O2SAT 95; BMI 24.6
--- NOTE | 2023-05-13 09:53 | RAD_ITS ---
STUDY: X-RAY CHEST REASON FOR EXAM: Male, 32 years old. Cough, fever TECHNIQUE: Single AP portable view of the chest. COMPARISON: Comparison is made with prior study January 19, 2023. FINDINGS: The lungs are clear and expanded. There is no demonstrated pleural abnormality. Normal size heart. Normal mediastinum and eladio. Normal visualized pulmonary arteries. Normal visualized aortic arch and descending thoracic aorta. Normal visualized thoracic spine. Normal visualized ribs, clavicles, and shoulders. There is no demonstrated abnormality of the visualized soft tissue structures of the upper abdomen. RAD/Chest 1 View (Portable) IMPRESSION: Normal x-ray examination of the chest. Electronically Signed: Shantanu Lorenzana MD at 10:30 [facility] ,
--- NOTE | 2023-05-13 09:54 | EX.ED.DYSGE1 ---
HPI History of Present Illness Chief Complaint: Fever Detail of Chief Complaint: Fever and cough and sore throat Informant: patient Narrative Narrative: Patient presents to the emergency department with complaint of fever and cough and sore throat that initially started 4 days ago. Patient states that 2 weeks ago his brother had COVID. Patient also states that he recently traveled to [place] via airplane. Patient denies significant dyspnea. He does state he gets pneumonia frequently. Patient denies any chest pain or difficulty swallowing. PFSH PFSH Medical History No pertinent family history Pneumonia PUD (peptic ulcer disease) Home Medications gabapentin 100 mg capsule 200 mg PO DAILY 12/01/22 [History Last Taken Unknown] albuterol sulfate 90 mcg/actuation aerosol inhaler 2 puff inhalation Q4H 01/27/23 [History Last Taken Unknown] fluticasone propionate 110 mcg/actuation HFA aerosol inhaler (Flovent HFA) 1 puff inhalation DAILY PRN SOB 01/27/23 [History Last Taken Unknown] fluticasone propionate 50 mcg/actuation nasal spray,suspension 1 spray intranasal BID PRN nasal congestion 01/27/23 [History Last Taken Unknown] Allergy/AdvReac Type Severity Reaction Status Date / Time nickel Allergy Intermediate Rash Verified 05/13/23 09:46 almond Allergy Other Verified 05/13/23 09:46 banana AdvReac swelling Verified 05/13/23 09:46 cocoa AdvReac migraine Verified 05/13/23 09:46 soy AdvReac migraine Verified 05/13/23 09:46 Family History Other No pertinent family history Surgical History No pertinent past surgical history Social History Smoking Status: Never smoker Electronic Cigarette Use: not used substance use type: does not use ROS ROS ED Review of Systems ROS Unobtainable: other Constitutional Constitutional ED: Reports fever(s) and lethargy; Denies chills, sweats or weight loss Eyes Eyes: Denies blurry vision, change in vision or diplopia ENT ENT ED: Reports sore throat; Denies rhinorrhea Cardiovascular Cardiovascular: Denies chest pain, orthopnea or racing heartbeat Respiratory/Chest Respiratory/Chest: Reports cough and dyspnea; Denies dyspnea on exertion, orthopnea or sputum Gastrointestinal Gastrointestinal: Denies abdominal pain, diarrhea, nausea or vomiting Genitourinary Genitourinary ED: Denies dysuria, hematuria or urinary frequency Musculoskeletal Musculoskeletal: Denies arthralgias, back pain, myalgias or neck pain Integumentary Denies abscess, Abrasions or rash Neurologic Neurologic: Denies headache(s) or weakness Psychiatric Psychiatric: Denies anxiety, depression or suicidal thoughts Endocrine Endocrinology: Denies polydipsia, polyphagia or polyuria Hematologic/Lymphatic Hematologic/Lymphatic: Denies easy bleeding, easy bruising or lymphadenopathy Allergic/Immunologic Allergic/Immunologic ED: Denies mouth swelling, tongue swelling or urticaria EXAM Physical Exam Const Vital Signs: 05/13/23 09:44 05/13/23 10:10 05/13/23 11:57 Temperature 95.7 F L Temperature Source Temporal Pulse Rate 120 H 115 H Respiratory Rate 20 H 20 H Respiratory Effort Normal Non-Labored Respiratory Pattern Normal Blood Pressure 116/78 108/85 H Blood Pressure Mean 90 92 Pulse Ox 95 98 Oxygen Delivery Method Room Air 05/13/23 11:57 Temperature 97.6 F L Temperature Source Pulse Rate 115 H Respiratory Rate 20 H Respiratory Effort Respiratory Pattern Blood Pressure 108/85 H Blood Pressure Mean 92 Pulse Ox 98 Oxygen Delivery Method Positive well nourished and well developed General Appearance ED: well developed and NAD HEENT Reports TM's clear and moist mucous membranes normocephalic and atraumatic; Negative for trauma or tenderness Tympanic Membrane ED: Yes TM's clear Eyes PERRL and EOMs intact bilaterally General Eye ED: Negative for pale conjunctiva or scleral icterus Neck no lymphadenopathy, supple and no JVD General: Negative for tenderness Chest Wall inspection of chest normal and palpation of chest normal Chest: Negative for tenderness Resp normal respiratory effort and clear to auscultation bilaterally Effort and Inspection: Negative for respiratory distress or pain with movement Auscultation: Negative for rhonchi, wheezes or diminished lung sounds Cardio regular rate, regular rhythm, S1 normal heart sound, S2 normal heart sound and no murmurs Peripheral Pulses: pulses 2+ throughout GI normal to inspection, nondistended, normoactive bowel sounds, soft to palpation, non-tender, non-distended and no masses Back/Spine no CVA tenderness and no thoracic nor lumbar tenderness Extremity normal to inspection General Extremety ED: Negative for edema General Extremity: Negative for edema Neuro oriented x3, CN's II-XII intact bilaterally, no sensory deficits noted and gait normal Sensorium / Orientation: awake, alert, oriented to person, oriented to place and oriented to time Motor Exam: strength 5/5 throughout and strength abnormal Psych mental status grossly normal Skin no rashes or lesions noted and no wounds MDM MDM MDM Narrative Medical decision making narrative: Patient presents with fever and cough and sore throat. Clinically looks well. I did do a chest x-ray given his tachycardia and history of pneumonia. X-ray shows no evidence of infiltrate or pneumonia. I did do COVID and flu as well as RSV testing which was positive for influenza A. This point recommended symptomatic care. Advised to push fluids and ibuprofen and Tylenol for discomfort. Patient not in the time window for Tamiflu. Radiography Diagnostic Testing: Clinical Impression(s) from Imaging Studies Chest X-Ray 05/13/23 09:53 IMPRESSION: Normal x-ray examination of the chest. Electronically Signed: Shantanu Lorenzana MD at 10:30 EST Reading Location ID and State: [facility] / [place] , Service support , 1 view chest x-ray obtained interpreted by myself as no evidence of infiltrate or acute process. Radiology in agreement. Discharge Plan Triage Chief Complaint: Fever ED Provider: Esa Hahn Dx/Rx/DC Orders Clinical Impression: Influenza A Instructions: ED Influenza (Adult) Prescriptions: No Action albuterol sulfate 90 mcg/actuation HFA aerosol inhaler 2 puff inhalation Q4H Patient Comments: INHALE 1 TO 2 PUFFS EVERY 4 TO 6 HOURS NEEDED FOR WHEEZE FOR UP TO 30 DAYS fluticasone propionate 50 mcg/actuation spray,suspension 1 spray intranasal BID PRN (Reason: nasal congestion) Patient Comments: SPRAY 1 SPRAY INTO EACH NOSTRIL TWICE A DAY fluticasone propionate [Flovent HFA] 110 mcg/actuation HFA aerosol inhaler 1 puff inhalation DAILY PRN (Reason: SOB) gabapentin 100 mg capsule 200 mg PO DAILY Primary Care Provider: Monroe Jennings Referrals: Monroe Jennings DO [Primary Care Provider] - 5-7 Days Disposition Disposition: Home, Self Care Discharge Date/Time: 05/13/23 12:00
[2023-05-13 11:57] VITALS: BP 108/85; PULSE 115; RESP 20; TEMP 36.4; O2SAT 98
== END 2023-05-13 12:00 | disposition home or self-care (01) ==
PROVIDERS: Emergency Provider Emergency Medicine; PCP Family Medicine; Visit Provider Emergency Medicine
DX: J10.1 Influenza due to other identified influenza virus with other respiratory manifestations (principal)
CPT/HCPCS: 71045; 87631; 99282

== ENCOUNTER → 2024-10-12 | Outpatient (CLI) | payer MEDICAID, SELFPAY ==
[2024-10-12 18:18] LABS: Hematocrit 47.5 % (40-54); Hemoglobin 15.3 g/dL (13.0-16.5); Immature Granulocytes Count 0.040 X10^3/uL (0.0-0.0); Mean Corp Hgb Conc 32.2 g/dL (32-36); Mean Corpuscular Volume 84.7 fL (80-94); Mean Platelet Vol. 11.7 fl (6.2-12.0); NRBC Flagged by Analyzer 0 % (0-5); Platelet Count 262 K/mm3 (150-450); RBC Distribution Width CV 12.9 % (11.6-14.6); RBC Distribution Width SD 39.5 fl (35.1-43.9); Red Blood Count 5.61 M/mm3 (4.6-6.2); White Blood Count 9.8 K/mm3 (4.4-11.0)
[2024-10-12 18:28] LABS: CRP 27.30 mg/L (0.0-3.0)
[2024-10-14 15:08] LABS: Cytoplasmic Ab (C-ANCA) <1:20 titer (Neg:<1:20); Perinuclear Ab (P-ANCA) <1:20 titer (Neg:<1:20)
== END | disposition home or self-care (01) ==
LOC: BFHLAB 15:17
PROVIDERS: PCP Family Medicine; Visit Provider Family Medicine
DX: I77.6 Arteritis, unspecified (principal)
CPT/HCPCS: 36415; 85025; 85652; 86037; 86140